=== PATIENT | male | born 1945 | race Caucasian/White ===

== ENCOUNTER → 2017-08-23 | Outpatient (CLI) | payer MEDICARE ==
[2017-08-23 17:14] LABS: BASO # 0.1 10^3/uL (0.0-0.2); BASO % 0.6 % (0.0-1.0); EOS # 0.1 10^3/uL (0.0-0.50); EOS % 0.8 % (0.0-3.0); HEMATOCRIT 43.1 % (42.0-52.0); HEMOGLOBIN 13.6 g/dl (13.5-17.5); IMMATURE GRANULOCYTE % 0.4 % (0-3.0); LYMPH # 1.8 10^3/uL (1.5-4.5); LYMPH % 18.6 % (24.0-44.0); MEAN CORPUSCULAR HEMOGLOBIN 27.6 pg (27.0-33.0); MEAN CORPUSCULAR HGB CONC 31.6 g/dl (32.0-36.5); MEAN CORPUSCULAR VOLUME 87.4 fl (80.0-96.0); MONO # 0.8 10^3/uL (0.0-0.8); MONO % 7.9 % (0.0-5.0); NEUTROPHILS # 6.9 10^3/uL (1.8-7.7); NEUTROPHILS % 71.7 % (36.0-66.0); PLATELET COUNT, AUTOMATED 290 10^3/uL (150-450); RED BLOOD COUNT 4.93 10^6/uL (4.30-6.10); RED CELL DISTRIBUTION WIDTH 12.5 % (11.5-14.5); WHITE BLOOD COUNT 9.6 10^3/uL (4.0-10.0)
[2017-08-26 00:10] LABS: HERPES ZOSTER, VARICELLA IgG 1967 index (Immune >165); HERPES ZOSTER, VARICELLA IgM <0.91 index (0.00-0.90); Lyme Disease IgG/IgM Antibodie <0.91 ISR (0.00-0.90); Lyme Disease IgM Ab Quantitati <0.80 index (0.00-0.79)
== END ==
LOC: M WUC 12:19
DX: R21 Rash and other nonspecific skin eruption (principal)
CPT/HCPCS: 86787

== ENCOUNTER 2018-07-13 09:52 | Emergency (ER) | payer MEDICARE ==
[~2018-07-13] VITALS: Ht 185.4 cm; Wt 126.8 kg
[~2018-07-13 09:52] MED LIST: /GLIP10TAB PO; ACTO30TA PO; ASPI81TA83 PO; GLUC500T PO; PRIL40CA OR; RAMI25CA PO; SIMV80TA PO; VOLT1GEL TOP
[2018-07-13] MEDS ORDERED: TRUL10IN INJ (10:01)
[2018-07-13] MEDS ORDERED: RAMI1CAP22 PO (10:01)
[2018-07-13] MEDS ORDERED: TAMS1CAP17 PO (10:01)
[2018-07-13] MEDS ORDERED: DICL50TAB PO (10:01)
[2018-07-13] MEDS ORDERED: FLUTISP NARES (10:01)
[2018-07-13] MEDS ORDERED: SLOWTAB2 PO (10:01)
[2018-07-13] MEDS ORDERED: PIOG1TAB37 PO (10:01)
[2018-07-13] MEDS ORDERED: ASPI81TA85 PO (10:01)
[2018-07-13] MEDS ORDERED: NS 1,000 ML IV ONE (10:30)
[2018-07-13 10:46] LABS: BASO # 0.1 10^3/uL (0.0-0.2); BASO % 0.5 % (0.0-1.0); EOS # 0.1 10^3/uL (0.0-0.50); EOS % 0.8 % (0.0-3.0); HEMATOCRIT 41.4 % (42.0-52.0); HEMOGLOBIN 13.4 g/dl (13.5-17.5); LYMPH # 1.7 10^3/uL (1.5-4.5); MEAN CORPUSCULAR HEMOGLOBIN 28.5 pg (27.0-33.0); MEAN CORPUSCULAR HGB CONC 32.4 g/dl (32.0-36.5); MEAN CORPUSCULAR VOLUME 87.9 fl (80.0-96.0); MONO # 0.8 10^3/uL (0.0-0.8); MONO % 7.4 % (0.0-5.0); NEUTROPHILS % 74.9 % (36.0-66.0); PLATELET COUNT, AUTOMATED 265 10^3/uL (150-450); RED BLOOD COUNT 4.71 10^6/uL (4.30-6.10); WHITE BLOOD COUNT 10.7 10^3/uL (4.0-10.0)
[2018-07-13 11:18] LABS: ALBUMIN 3.1 GM/DL (3.2-5.2); ALT/SGPT 14 U/L (12-78); BILIRUBIN,TOTAL 0.8 MG/DL (0.2-1.0); BLOOD UREA NITROGEN 14 MG/DL (7-18); CALCIUM LEVEL 8.1 MG/DL (8.8-10.2); CARBON DIOXIDE LEVEL 26 MEQ/L (21-32); CHLORIDE LEVEL 105 MEQ/L (98-107); CREATININE FOR GFR 0.92 MG/DL (0.70-1.30); GLOMERULAR FILTRATION RATE > 60.0 (>42); GLUCOSE, FASTING 114 MG/DL (70-100); SODIUM LEVEL 139 MEQ/L (136-145); TOTAL PROTEIN 6.9 GM/DL (6.4-8.2)
--- NOTE | 2018-07-13 12:46 | REP ---
REASON: Assess for possible inguinal hernia. COMPARISON: None. Multiple sonographic images of the inguinal regions bilaterally show hypoechoic/mixed echo areas in both inguinal canals consistent with adipose tissue. This does not diagnose an inguinal hernia. There is no abnormal peristalsing bowel in either inguinal canal. IMPRESSION: Each inguinal canal contains what is most probably increased adipose tissue which does not diagnose an inguinal hernia since there is no evidence of bowel in association with this suspected adipose tissue. I would recommend CT so as it can be compared to the prior pelvic CT of 01/22/2011. Electronically Signed by Arley Irizarry DO 07/13/2018 01:21 P
[2018-07-13] MEDS ORDERED: ZOFR4TAB16 PO (12:53)
[2018-07-13] MEDS ORDERED: TYLETAB14 PO (12:53)
[2018-07-13 12:55] VITALS: BP 136/74
[2018-07-13] MEDS ORDERED: ACETAMINOPH W/CODEINE #3 TAB UD PO ONE (13:00)
== END 2018-07-13 13:10 | disposition home or self-care (01) ==
LOC: M ED 09:52
DX: K40.20 Bilateral inguinal hernia, without obstruction or gangrene, not specified as recurrent (principal); Z88.0 Allergy status to penicillin; I10 Essential (primary) hypertension; E11.9 Type 2 diabetes mellitus without complications; E78.00 Pure hypercholesterolemia, unspecified; J30.2 Other seasonal allergic rhinitis; Z87.442 Personal history of urinary calculi; Z79.899 Other long term (current) drug therapy; Z79.84 Long term (current) use of oral hypoglycemic drugs; Z79.82 Long term (current) use of aspirin

== ENCOUNTER 2018-07-17 11:33 | Inpatient (IN) | payer MEDICARE ==
[~2018-07-17] VITALS: Ht 185.4 cm; Wt 125.0 kg
[~2018-07-17 11:33] MED LIST changes: +ASPI81TA85 PO; +DICL50TAB PO; +FLUTISP NARES; +PIOG1TAB37 PO; +RAMI1CAP22 PO; +SLOWTAB2 PO; +TAMS1CAP17 PO; +TRUL10IN INJ; +TYLETAB14 PO; +ZOFR4TAB16 PO
[2018-07-17] MEDS ORDERED: DICL1GEL3 TOP (12:51)
[2018-07-17 13:02] LABS: BASO # 0.1 10^3/uL (0.0-0.2); BASO % 0.5 % (0.0-1.0); EOS # 0.1 10^3/uL (0.0-0.50); EOS % 0.4 % (0.0-3.0); HEMATOCRIT 44.9 % (42.0-52.0); HEMOGLOBIN 14.4 g/dl (13.5-17.5); LYMPH # 1.5 10^3/uL (1.5-4.5); LYMPH % 13.3 % (24.0-44.0); MEAN CORPUSCULAR HEMOGLOBIN 28.1 pg (27.0-33.0); MEAN CORPUSCULAR HGB CONC 32.1 g/dl (32.0-36.5); MEAN CORPUSCULAR VOLUME 87.5 fl (80.0-96.0); MONO # 0.8 10^3/uL (0.0-0.8); MONO % 7.2 % (0.0-5.0); NEUTROPHILS % 78.3 % (36.0-66.0); PLATELET COUNT, AUTOMATED 290 10^3/uL (150-450); RED BLOOD COUNT 5.13 10^6/uL (4.30-6.10); WHITE BLOOD COUNT 11.4 10^3/uL (4.0-10.0)
[2018-07-17 13:14] LABS: INR 0.96; PARTIAL THROMBOPLASTIN TIME 30.2 SECONDS (25.4-37.6); PROTHROMBIN TIME 12.9 SECONDS (12.1-14.4)
[2018-07-17 13:28] LABS: ERYTHROCYTE SEDIMENTATION RATE 28 mm/hr (0-20)
[2018-07-17 13:36] LABS: ALBUMIN 3.1 GM/DL (3.2-5.2); ALT/SGPT 12 U/L (12-78); AMYLASE 29 U/L (25-115); BILIRUBIN,DIRECT 0.2 MG/DL (0.0-0.2); BILIRUBIN,TOTAL 0.8 MG/DL (0.2-1.0); BLOOD UREA NITROGEN 9 MG/DL (7-18); C REACTIVE PROTEIN QUANTITATIV 6.69 MG/DL (0.00-0.30); CALCIUM LEVEL 8.6 MG/DL (8.8-10.2); CARBON DIOXIDE LEVEL 27 MEQ/L (21-32); CHLORIDE LEVEL 103 MEQ/L (98-107); CREATININE FOR GFR 0.86 MG/DL (0.70-1.30); GLOMERULAR FILTRATION RATE > 60.0 (>42); GLUCOSE, FASTING 120 MG/DL (70-100); LIPASE 60 U/L (73-393); POTASSIUM SERUM 4.1 MEQ/L (3.5-5.1); SODIUM LEVEL 137 MEQ/L (136-145); TOTAL PROTEIN 7.1 GM/DL (6.4-8.2)
[2018-07-17] MEDS ORDERED: METF10004 PO (14:21)
[2018-07-17] MEDS ORDERED: GLIP10TA PO ×2 (14:21)
[2018-07-17] MEDS ORDERED: METF-839 PO (14:21)
[2018-07-17] MEDS ORDERED: ACET1TAB16 PO (14:21)
[2018-07-17] MEDS ORDERED: ADVI100T PO (14:23)
[2018-07-17] MEDS ORDERED: ACET-683 PO (14:23)
[2018-07-17] MEDS ORDERED: ISOVUE-370 76% 100ML VIAL (Q9967) As Ordered ONE (14:23)
[2018-07-17] MEDS ORDERED: ZOCO80TA PO (14:23)
[2018-07-17] MEDS ORDERED: OMEP40CA2 PO (14:23)
--- NOTE | 2018-07-17 14:50 | REP ---
Clinical: Cellulitis. Technique: Axial contrast enhanced images from the lung bases to the pubic symphysis using 100 ml Isovue 370 intravenous contrast material with coronal and sagittal re-formations. Comparison: 01/22/2011. Findings: Fibroatelectatic changes in the posterior right lower lobe. Visualized heart and pericardium normal. The liver, spleen, pancreas, gallbladder, bilateral adrenal glands and kidneys are normal. The enteric system is without obstruction or acute inflammatory process. Scattered sigmoid diverticula noted without acute diverticulitis. Pelvis demonstrates normal bladder and age appropriate prostate/seminal vesicles. No ascites. No free air. No adenopathy. Atherosclerotic changes to the aorta and vasculature without aneurysm or dissection. Osseous structures demonstrate osteopenia and degenerative changes without focal abnormality. Small fat containing inguinal hernias are suggested. There is a 4.4 cm round rim enhancing fluid collection in the right groin anterior to the right common femoral artery likely representing underlying abscess with small adjacent inflammatory stranding and reactive lymph nodes (images 147-166). Overlying skin thickening and subcutaneous infiltration is consistent with a site of cellulitis. Impression: 1. 4.4 cm rim enhancing fluid collection in the right groin superficial to the right common femoral artery with inflammatory stranding and mild reactive adenopathy suggesting small abscess. Mild surrounding cellulitis. 2. Right basilar atelectasis and/or chronic changes. 3. Scattered sigmoid diverticula. 4. Small fat containing inguinal hernias. Electronically Signed by Cuco Perez MD 07/17/2018 02:42 P
[2018-07-17] MEDS ORDERED: metroNIDAZOLE 500 MG in APPROPRIATE DILUENT 1 EA IV ONE (15:15)
[2018-07-17] MEDS ORDERED: CIPROFLOXACIN 400 MG in APPROPRIATE DILUENT 1 EA IV ONE (15:15)
[2018-07-17] MEDS ORDERED: MOM 30ML SUSPENSION UDC PO PRN (16:30)
[2018-07-17] MEDS ORDERED: GLUCAGON FOR INJ 1 MG VIAL (J1610) SC PRN (16:30)
[2018-07-17] MEDS ORDERED: DEXTROSE 50% 50 ML SYRINGE IV PRN (16:30)
[2018-07-17] MEDS ORDERED: GLUCOSE 4 GM CHEW TABLET PO PRN (16:30)
[2018-07-17] MEDS: HumaLOG INSULIN (NovoLOG) PER UNIT SC SCH ×2 (17:30→21:00)
--- NOTE | 2018-07-17 17:35 | HPEPDOC ---
[facility] Medical History & Physical Date of Admission July 17, 2018 Date of Service: July 17, 2018 Primary Care Physician: JUSTIN BROWN M.D. Attending Physician: SIMONA HEADLEY MD History and Physical CHIEF COMPLAINT: Right Inguinal Pain/Swelling HISTORY OF PRESENT ILLNESS: Patient is a 72 year old male with a past medical history significant for obesity and diabetes mellitus type 2 who presented to the [facility] ER with complaint of right inguinal pain and swelling since 06/26. Patient stated that on Sunday he had noted swelling on his right inguinal area. He noted that it was slightly tender. He sought care at the [facility] ER where it was felt he had a hernia. The patient was subsequently referred to Dr. Boateng of General Surgery. The patient presented to Dr. Boateng on 07/17/2018. At that time it was found that the patients complaint was likely not due to a hernia but due to a abscess/cellulitis. The patient was sent from the surgery office to the [facility] ER for further evaluation. The patient stated that he had recently returned from a trip to the [facility] where he went hiking and swimming. He denied hunting or coming into contact with animals. He does have dogs. He denied noticing any tick bites or feeling any insect bites although he is not sure. He denies any fevers or chills however stated that on Sunday night he had woken up in a sweat and noticed that his sheets were drenched. He states that since Sunday he has not had this happen again. He does admit to tenderness over his right inguinal region as well as a hard nodule. In the ER the patient received a CT abd/pelvis which demonstrated a 4.4 cm rim enhancing fluid collection in the right groin superficial to the right common femoral artery with inflammatory stranding and mild reactive adenopathy suggesting a small abscess with mild surrounding cellulitis. The patient was subsequently started on Flagyl and Cipro. Patient was then admitted for further evaluation and management PAST MEDICAL HISTORY: 1. GI bleed 2/2 Gastric ulcer in 2010 2/2 to NSAID use 2. Diabetes Mellitus Type 2 3. Osteoarthritis of bilateral knees PAST SURGICAL HISTORY: 1. Root canal 06/2018 SOCIAL HISTORY: Patient lives at home with his and dogs. He denies smoking. He denies illicit drug use. FAMILY HISTORY: Noncontributory ALLERGIES: Please see below. REVIEW OF SYSTEMS: CONSTITUTIONAL: Admits to one epsiode of night sweats. Denies fevers. Denies fatigue. Denies unintentional weightloss or weightgain HEENT: Denies changes in vision. Denies dysphagia or sore throat. Denies cough or sputum production. Denies congestion CARDIOVASCULAR: Denies chest pain, palpitations, or feelings of the heart racing RESPIRATORY: Denies shortness of breath. Denies cough. Denies wheezing GASTROINTESTINAL: Denies abdominal pain. Admits to right inguinal tenderness and mass with redness. Denies diarrhea, constipation, nausea, vomiting. GENITOURINARY: Denies dysuria or increased frequency SKIN: Admits to redness of right inguinal area. Denies any puncture wounds, rashes, or lesions. Denies any insect bites MUSCULOSKELETAL: Admits to chronic pain in his knees NEUROLOGICAL: Denies gait disturbance. Denies changes in vision in speech. Denies muscle weakness PSYCHIATRIC: Denies depression or anxiety ENDOCRINE: Denies heat intolerance or cold intolerance HEMATOLOGIC/LYMPHATIC: Denies easy bruising or bleeding HOME MEDICATIONS: Please see below. PHYSICAL EXAMINATION: VITAL SIGNS: Temperature 98.8, pulse 91, respiratory rate 16, blood pressure 138/78, pulse oximetry 98% on room air. GENERAL APPEARANCE: Patient is awake, alert, and oriented. He is lying in stretcher in no acute distress. He is well groomed HEENT: Atruamtic, normocephalic. Eyes are nonicteric. No conjunctival injection present. No palpable cervical chain lymphadenopathy. No axillary or supraclavicular lymphadenopathy present CARDIOVASCULAR: Normal S1, S2. Regular rate and rhythm. No clicks, rubs, or murmurs. No JVD LUNGS: Clear vesicular lung sounds bilaterally with good respiratory effort. No wheezes, rhonchi or rales. ABDOMEN: Obese, soft, nondistended. Approximately 5mm hard mass in right inguinal area with overlying erythema. Area of erythema extending distally to thigh. No obvious trauma or puncture wounds. Mass is tender to palpation. EXTREMITIES: Full and equal pulses bilaterally. 1mm pitting edema in bilateral lower extremities NEUROLOGICAL: No focal neurological deficits noted PSYCHIATRIC: Mood and affect appear appropriate LABORATORY DATA: See below. IMAGING: Clinical: Cellulitis. Technique: Axial contrast enhanced images from the lung bases to the pubic symphysis using 100 ml Isovue 370 intravenous contrast material with coronal and sagittal re-formations. Comparison: 01/22/2011. Findings: Fibroatelectatic changes in the posterior right lower lobe. Visualized heart and pericardium normal. The liver, spleen, pancreas, gallbladder, bilateral adrenal glands and kidneys are normal. The enteric system is without obstruction or acute inflammatory process. Scattered sigmoid diverticula noted without acute diverticulitis. Pelvis demonstrates normal bladder and age appropriate prostate/seminal vesicles. No ascites. No free air. No adenopathy. Atherosclerotic changes to the aorta and vasculature without aneurysm or dissection. Osseous structures demonstrate osteopenia and degenerative changes without focal abnormality. Small fat containing inguinal hernias are suggested. There is a 4.4 cm round rim enhancing fluid collection in the right groin anterior to the right common femoral artery likely representing underlying abscess with small adjacent inflammatory stranding and reactive lymph nodes (images 147-166). Overlying skin thickening and subcutaneous infiltration is consistent with a site of cellulitis. Impression: 1. 4.4 cm rim enhancing fluid collection in the right groin superficial to the right common femoral artery with inflammatory stranding and mild reactive adenopathy suggesting small abscess. Mild surrounding cellulitis. 2. Right basilar atelectasis and/or chronic changes. 3. Scattered sigmoid diverticula. 4. Small fat containing inguinal hernias. Electronically Signed by Cuco Perez MD 07/17/2018 02:42 P MICROBIOLOGY: Please see below. ASSESSMENT: Patient is a 72 year old male with a past medical history significant for bilateral knee osteoarthritis, h/o GI bleed secondary to gastric ulcer from chronic NSAID use, and diabetes mellitus type 2 who presented to the [facility] ER with complaint of right inguinal swelling and tenderness. Patient had presented to the ER earlier in the week and was told he likely had a hernia. He was subsequently referred to General Surgery where he was found to have a likely abscess. The patient was sent to the ER where he was found to have a likely abscess in his right inguinal area. . PLAN: 1. Right Groin/inguinal abscess/cellulitis -Patient has an abscess identified by CT. He also has a cellulitis with spreading areas of erythema. -Patient will see Dr. Boateng for I&D or needle drainage -Will continue patient on Flagyl and Cipro -Patient had recently traveled and was hiking. Will obtain Lyme, Bartonella, and Brucella testing. 2. Diabetes Mellitus Type 2 -Sliding scale insulin protocol -Ramipril -Simvastatin 3. BPH -Fomax 0.4mg QHS 4. H/O Gastric Ulcer/ GERD -Prilosec 40mg daily Vital Signs Vital Signs Date Time Temp Pulse Resp B/P (MAP) Pulse Ox O2 Delivery O2 Flow Rate FiO2 07/17/18 15:30 98.8 91 16 138/78 (98) 98 Room Air Laboratory Data Labs 24H Laboratory Tests 2 07/17/18 12:42: Immature Granulocyte % (Auto) 0.3, White Blood Count 11.4H, Red Blood Count 5.13, Hemoglobin 14.4, Hematocrit 44.9, Mean Corpuscular Volume 87.5, Mean Corpuscular Hemoglobin 28.1, Mean Corpuscular Hemoglobin Concent 32.1, Red Cell Distribution Width 13.2, Platelet Count 290, Neutrophils (%) (Auto) 78.3H, Ly mphocytes (%) (Auto) 13.3L, Monocytes (%) (Auto) 7.2H, Eosinophils (%) (Auto) 0.4, Basophils (%) (Auto) 0.5, Neutrophils # (Auto) 9.0H, Lymphocytes # (Auto) 1.5, Monocytes # (Auto) 0.8, Eosinophils # (Auto) 0.1, Basophils # (Auto) 0.1, Nucleated Red Blood Cells % (auto) 0.0, Erythrocyte Sedimentation Rate 28H, Prothrombin Time 12.9, Prothromb Time International Ratio 0.96, Activated Partial Thromboplast Time 30.2, Anion Gap 7L, Glomerular Filtration Rate > 60.0, Lactic Acid Level 1.4, Calcium Level 8.6L, Aspartate Amino Transf (AST/SGOT) 10, Alanine Aminotransferase (ALT/SGPT) 12, Alkaline Phosphatase 88, Total Bilirubin 0.8, Direct Bilirubin 0.2, C-Reactive Protein, Quantitative 6.69H, Total Protein 7.1, Albumin 3.1L, Albumin/Globulin Ratio 0.78L, Amylase Level 29, Lipase 60L CBC/BMP Laboratory Tests 07/17/18 12:42 Red Blood Count 5.13, Mean Corpuscular Volume 87.5, Mean Corpuscular Hemoglobin 28.1, Mean Corpuscular Hemoglobin Concent 32.1, Red Cell Distribution Width 13.2, Neutrophils (%) (Auto) 78.3 H, Lymphocytes (%) (Auto) 13.3 L, Monocytes (%) (Auto) 7.2 H, Eosinophils (%) (Auto) 0.4, Basophils (%) (Auto) 0.5, Neutrophils # (Auto) 9.0 H, Lymphocytes # (Auto) 1.5, Monocytes # (Auto) 0.8, Eosinophils # (Auto) 0.1, Basophils # (Auto) 0.1 Microbiology Microbiology 07/17/18 Blood Culture, Received Pending 07/17/18 Blood Culture, Received Pending Home Medications Scheduled Aspirin (Aspir 81) 81 Mg Tablet.dr, 81 MG PO DAILY Dulaglutide (Trulicity) 0.75 Mg/0.5 Ml Pen.injctr, 0.75 MG INJ QWEEK ON MONDAYS Glipizide (Glipizide) 10 Mg Tablet, 10 MG PO DAILY Glipizide (Glipizide) 10 Mg Tablet, 5 MG PO QPM TAKES AT DINNER Magnesium Chloride (Slow-Mag) 71.5 Mg Tablet.dr, 1 TAB PO BID Metformin HCl (Metformin HCl) 1,000 Mg Tablet, 1,000 MG PO BID Metformin HCl (Metformin HCl) 500 Mg Tablet, 500 MG PO DAILY AT 1200 Omeprazole (Omeprazole) 40 Mg Capsule.dr, 40 MG PO DAILY Pioglitazone HCl (Pioglitazone HCl) 30 Mg Tablet, 30 MG PO DAILY Ramipril (Ramipril) 2.5 Mg Capsule, 2.5 MG PO DAILY Simvastatin (Zocor) 80 Mg Tablet, 80 MG PO DAILY Tamsulosin Hcl (Tamsulosin HCl) 0.4 Mg Capsule, 0.4 MG PO QHS Scheduled PRN Acetaminophen (Acetaminophen) 500 Mg Tablet, 500 MG PO Q6H PRN for PAIN Acetaminophen with Codeine (Acetaminophen-Cod #3 Tablet) 1 Each Tablet, 1 TAB PO Q6H PRN for PAIN Diclofenac Sodium (Diclofenac Sodium) 1% 100GM Gel..gram., 1 APLCT TOP DAILY PRN for PAIN APPLIES TO KNEES AND OCCASIONALLY ELBOWS Fluticasone Propionate (Fluticasone Propionate) 16 Gm Cotton.susp, 2 SPRAYS NARES DAILY PRN for CONGESTION Ibuprofen (Advil) 100 Mg Tablet, 100 MG PO Q6H PRN for PAIN Allergies Coded Allergies: Penicillins (Verified Allergy, Unknown, SEVERE RASH, 07/17/18) A-FIB/CHADSVASC A-FIB History Current/History of A-Fib/PAF?: No GME ATTESTATION GME ATTESTATION My faculty preceptor for this patient encounter was physically present during the encounter and was fully available. All aspects of the patient interview, examination, medical decision making process, and medical care plan development were reviewed and approved by the faculty preceptor. The faculty preceptor is aware and concurs with the plan as stated in the body of this note and will attest to such by his/her cosignature. ATTENDING NOTE Patient was seen and examined at bedside in ED Case discussed with resident physician . We will also request a surgical consultation for possible I&D Cultures will be sent to the I&D is performed Continue Jasmine Saba. In the meantime Infectious disease workup has been ordered LA SINGH DO July 17, 2018 17:35 SIMONA HEADLEY MD July 18, 2018 07:44
[2018-07-17] MEDS ORDERED: ACETAMINOPH W/CODEINE #3 TAB UD PO PRN (17:45)
[2018-07-17] MEDS: HEPARIN SOD (PORCINE) 5000 UNITS/ML VIAL SC SCH (21:01)
[2018-07-17] MEDS: TAMSULOSIN 0.4 MG CAP PO SCH (21:01)
[2018-07-17] MEDS: ACETAMINOPHEN TAB 650MG DOSE (2X325MG) PO PRN (21:01)
[2018-07-17 22:00] VITALS: BP 166/92
[2018-07-18] MEDS: metroNIDAZOLE 500 MG in APPROPRIATE DILUENT 1 EA IV SCH ×3 (01:19→17:27)
[2018-07-18] MEDS: CIPROFLOXACIN 400 MG in APPROPRIATE DILUENT 1 EA IV SCH ×2 (04:29→15:41)
[2018-07-18] MEDS: HEPARIN SOD (PORCINE) 5000 UNITS/ML VIAL SC SCH ×3 (04:37→22:00)
[2018-07-18 06:00] VITALS: BP 122/85
[2018-07-18 06:15] LABS: HEMATOCRIT 40.1 % (42.0-52.0); MEAN CORPUSCULAR HEMOGLOBIN 28.6 pg (27.0-33.0); MEAN CORPUSCULAR HGB CONC 32.4 g/dl (32.0-36.5); MEAN CORPUSCULAR VOLUME 88.1 fl (80.0-96.0); PLATELET COUNT, AUTOMATED 286 10^3/uL (150-450); RED BLOOD COUNT 4.55 10^6/uL (4.30-6.10); WHITE BLOOD COUNT 8.1 10^3/uL (4.0-10.0)
[2018-07-18 06:43] LABS: ALBUMIN 2.7 GM/DL (3.2-5.2); ALT/SGPT 13 U/L (12-78); BILIRUBIN,TOTAL 0.6 MG/DL (0.2-1.0); BLOOD UREA NITROGEN 10 MG/DL (7-18); C REACTIVE PROTEIN QUANTITATIV 3.92 MG/DL (0.00-0.30); CALCIUM LEVEL 8.6 MG/DL (8.8-10.2); CARBON DIOXIDE LEVEL 30 MEQ/L (21-32); CHLORIDE LEVEL 103 MEQ/L (98-107); CREATININE FOR GFR 0.92 MG/DL (0.70-1.30); GLOMERULAR FILTRATION RATE > 60.0 (>42); GLUCOSE, FASTING 201 MG/DL (70-100); POTASSIUM SERUM 4.1 MEQ/L (3.5-5.1); SODIUM LEVEL 138 MEQ/L (136-145); TOTAL PROTEIN 6.5 GM/DL (6.4-8.2)
[2018-07-18] MEDS: OMEPRAZOLE 20 MG CAP PO SCH (08:06)
[2018-07-18] MEDS: HumaLOG INSULIN (NovoLOG) PER UNIT SC SCH ×4 (08:06→21:00)
[2018-07-18] MEDS: SIMVASTATIN 40 MG TAB PO SCH (08:06)
[2018-07-18] MEDS: RAMIPRIL 1.25 MG CAP PO SCH (08:07)
--- NOTE | 2018-07-18 10:46 | CR ---
DATE OF CONSULTATION: 07/17/2018 The patient presented to the office yesterday morning with a cellulitis in the right groin and palpable mass. However, this was inferior to the inguinal ligament, and it was lateral to where a femoral hernia would be, suggesting that it is either an abscess developing or an enlarged lymph node. Essentially, he presented to my office, and I sent him to the emergency room, given that he had a rapid acceleration of cellulitis that developed over the last 24 hours. Essentially, he has had some dental issues and was on antibiotics for about a week. Just stopped it about 48 hours ago, and I wonder if this was being partially treated with antibiotics. He really does not have a good reason for this, however, and the right groin does not have any trauma or infections in the right groin area, right leg area. Has not had any other complaints around this area. In any case, he presents with a 4 cm abscess in the right groin and was admitted by the hospitalists with me as a computer consultant for additional recommendations. PAST MEDICAL HISTORY: Is significant for a history of morbid obesity, history of diabetes mellitus, history of pain and discomfort over the last week in the right groin but more so 4 days ago, and was seen in the emergency room. He had a slightly elevated white count at that time but had an ultrasound that showed fat in the inguinal canals and was sent to my office for possible inguinal hernias, which he does not have on physical examination. In any case, also osteoarthritis of the bilateral knees, root canal. MEDICATIONS: Include aspirin, Trulicity, glipizide, Slow-Magnesium, metformin, omeprazole, pioglitazone, ramipril, Zocor, and Flomax. PHYSICAL EXAMINATION: Reveals an obese white male who looks stated age. HEENT is unremarkable. Neck: Supple without adenopathy. Lungs are clear to auscultation without crackles, wheezes, or rhonchi. Heart is regular with a few irregular beats. Abdomen is soft, nontender, nondistended. In the right groin, he has cellulitis that it is extending from the groin crease down into his fat in the right inguinal area down to the scrotum area but not all the way to the scrotum. I do not feel any crepitus in this area. I do not appreciate any subcutaneous emphysema. None was appreciated on the CAT scan. He also has cellulitis on his upper thigh. IMPRESSION AND PLAN: The patient has an abscess in the right groin of undetermined etiology, infection with cellulitis; and at this point, my recommendation is to proceed with needle aspirate of this here in the emergency room, possibly drainage with incision and drainage depending on the amount of fluid I am able to express from this site. Risks, as well as benefits, have been discussed with the patient at length, and he would like to proceed with this here today. The patient was prepped and draped in usual sterile fashion, and local lidocaine with epinephrine was infiltrated over the abscess site that was easily palpated. This 4 cm size abscess was easily palpated. It was adherent to underlying structure, but it was not pulsatile, did not appear to be a pseudoaneurysm, did not appear to be other significant abnormality. Thus, a finder needle was placed with a 22 gauge into this. No fluid was returned, which is surprising at this time. I expected some purulent material; and thus, an 18 gauge catheter was placed into the middle of this, and still no fluid was obtained. Given this finding, my recommendation at this time is that he proceed with an ultrasound tomorrow; and if there is some fluid, that he undergo ultrasound-guided drainage, aspiration with possible culture of this. However, at this point, continue him with antibiotics overnight is reasonable. Thus, my assessment at this time is that this is most likely an enlarged lymph node.
--- NOTE | 2018-07-18 11:13 | IPN ---
DATE: 07/18/2018 Patient was seen yesterday, had significant cellulitis of the right groin with an abscess in the right groin. However, when I attempted to aspirate this in the emergency room I was not able to get any fluid back. Overnight, he states that the swelling in the right groin has substantially decreased. He has not had any drainage from the site and the redness has improved., and on his physical exam this is indeed true. His white count has normalized. He has been afebrile and overall the cellulitis has almost completely resolved. It has not completely resolved this morning. He still has a mass in this area but it seems as though it is less swollen than it was yesterday and seems to be of smaller size. IMPRESSION AND PLAN: The patient has an infected right groin area and the question whether this was an abscess or whether this was an infected lymph node is probably the question at this point. If this truly was fluid it would be nice to get some fluid, send it to pathology for microbiology and gram stain. Thus, I will keep his ultrasound-guided aspiration/drainage procedure on the schedule for today, but I do feel that after this he could be discharged home with oral antibiotics and followup in my office in 1-2 weeks.
[2018-07-18] MEDS: DICLOFENAC SODIUM 1% TOP SCH ×3 (11:59→21:00)
--- NOTE | 2018-07-18 13:39 | IPNPDOC ---
Subjective Date Seen The patient was seen on 07/18/18. Subjective Chief Complaint/HPI Redness is gone away and swelling has resolved slightly. Dr. Boateng tried to aspirate but was unable to perform it General: Denies: ROS Unobtainable, Chills, Night Sweats, Fatigue, Malaise, Normal Appetite, Other Symptoms Constitutional: Denies: Chills, Fever, Malaise, Night Sweats, Weakness, Fatig ue, Weight Loss, Lethargy, Other Eyes: Denies: Pain, Vision change, Conjunctivae inflammation, Eyelid inflammation, Redness, Other ENT: Denies: Head Aches, Ear Pain, Dysphagia, Sinus Congestion, Post Nasal Drip, Sore Throat, Epistaxis, Other Symptoms Skin: Denies: Rash, Lesions, Jaundice, Bruising, Itching, Dry, Breakdown, Nail Changes, Other Pulmonary: Denies: Dyspnea, Cough, Pleuritic Chest Pain, Other Symptoms Cardiovascular: Denies: Chest Pain, Palpitations, Orthopnea, Paroxysmal Noc. Dyspnea, Edema, Lt Headedness, Other Symptoms Gastrointestinal: Denies: Nausea, Vomiting, Abdominal Pain, Diarrhea, Constipation, Melena, Hematochezia, Other Symptoms Genitourinary: Denies: Dysuria, Frequency, Incontinence, Hematuria, Retention, Other Symptoms Hematologic: Denies: Bruising, Bleeding Excessively, Petecchia, Purpura, Enlarged Lymph Nodes, Other Hematologic Endocrine: Denies: Polydipsia, Polyphagia, Polyuria, Heat Intolerance, Cold Intolerance, Other Endocrine Sx Musculoskeletal: Denies: Neck Pain, Back Pain, Shoulder Pain, Arm Pain, Hand Pain, Leg Pain, Foot Pain, Joint Pain, Muscle Pain, Spasms, Other Symptoms Neurological: Denies: Weakness, Numbness, Incoordination, Change in speech, Confusion, Seizures, Other Symptoms Objective Physical Examination General Exam: Positive: Alert, Cooperative Eye Exam: Positive: PERRLA Neck Exam: Positive: Supple Chest Exam: Positive: Clear to auscultation, Normal air movement Heart Exam: Positive: Rate Normal, Normal S1, Normal S2 Abdomen Exam: Positive: Normal bowel sounds, Other (positive swelling. The right groin which decreased surrounding redness) Skin Exam: Positive: Nl turgor and temperature Neuro Exam: Positive: Normal Gait A-FIB/CHADSVASC A-FIB History Current/History of A-Fib/PAF?: No Assessment /Plan Problems (1) Cellulitis Status: Acute Problem Text: Resolving with IV antibiotics Continue Cipro and Flagyl Will continue the same as WC count is also decreasing Repeat CBC in a.m. Cultures and other antibiotics pending (2) Cutaneous abscess of groin Status: Acute Problem Text: Scheduled for ultrasound-guided decided aspiration . We will send the aspirate for cultures. Once available . We will discharge patient once the procedure is performed, and patient is asymptomatic Plan/VTE VTE Prophylaxis Ordered?: Yes VS, I&O, 24H, Fishbone Vital Signs/I&O Vital Signs Date Time Temp Pulse Resp B/P (MAP) Pulse Ox O2 Delivery O2 Flow Rate FiO2 07/18/18 08:07 122/85 07/18/18 06:00 97.3 80 18 96 07/17/18 15:30 Room Air I&O- Last 24 Hours up to 6 AM 07/18/18 06:00 Intake Total 1340 ml Output Total 0 ml Balance 1340 ml Laboratory Data 24H LABS Laboratory Tests 2 07/17/18 18:02: Bedside Glucose (Misc Panel) 112H 07/17/18 20:52: Bedside Glucose (Misc Panel) 185H 07/18/18 05:56: Nucleated Red Blood Cells % (auto) 0.0, Anion Gap 5L, Glomerular Filtration Rate > 60.0, Blood Urea Nitrogen 10, Creatinine 0.92, Sodium Level 138, Potassium Level 4.1, Chloride Level 103, Carbon Dioxide Level 30, Calcium Level 8.6L, Asp artate Amino Transf (AST/SGOT) 6L, Alanine Aminotransferase (ALT/SGPT) 13, Alkaline Phosphatase 74, Total Bilirubin 0.6, Total Protein 6.5, Albumin 2.7L, C-Reactive Protein, Quantitative 3.92H, Albumin/Globulin Ratio 0.71L 07/18/18 06:41: Bedside Glucose (Misc Panel) 175H 07/18/18 11:41: Bedside Glucose (Misc Panel) 169H CBC/BMP Laboratory Tests 07/18/18 05:56 Red Blood Count 4.55, Mean Corpuscular Volume 88.1, Mean Corpuscular Hemoglobin 28.6, Mean Corpuscular Hemoglobin Concent 32.4, Red Cell Distribution Width 13.1, Calcium Level 8.6 L, Aspartate Amino Transf (AST/SGOT) 6 L, Alanine Aminotransferase (ALT/SGPT) 13, Alkaline Phosphatase 74, Total Bilirubin 0.6, Total Protein 6.5, Albumin 2.7 L Microbiology Microbiology 07/17/18 Blood Culture - Preliminary, Resulted No growth after 24 hours . All specim... 07/17/18 Blood Culture - Preliminary, Resulted No growth after 24 hours . All specim... SIMONA HEADLEY MD July 18, 2018 13:39
[2018-07-18] MEDS ORDERED: LIDOCAINE 1% MDV 20ML VIAL As Ordered ONE (14:14)
--- NOTE | 2018-07-18 15:36 | REP ---
Clinical: Right groin abscess. Technique: Real time dozier scale and color Doppler evaluation using curved array transducer. Findings: Directed ultrasound examination of the right groin demonstrates a complex fluid collection measuring 5.3 x 3.5 x 3.5 cm with subtle peripheral vascularity. Impression: Findings compatible with groin abscess. Differential diagnosis may include a solitary suppurative lymph node. Electronically Signed by Cuco Perez MD 07/18/2018 03:28 P
[2018-07-18] MEDS: TAMSULOSIN 0.4 MG CAP PO SCH (19:30)
[2018-07-18] MEDS: ACETAMINOPHEN TAB 650MG DOSE (2X325MG) PO PRN (19:31)
[2018-07-18 22:00] VITALS: BP 123/82
[2018-07-19] MEDS: metroNIDAZOLE 500 MG in APPROPRIATE DILUENT 1 EA IV SCH ×2 (01:05→08:06)
[2018-07-19] MEDS: CIPROFLOXACIN 400 MG in APPROPRIATE DILUENT 1 EA IV SCH (05:20)
[2018-07-19] MEDS: HEPARIN SOD (PORCINE) 5000 UNITS/ML VIAL SC SCH (05:20)
[2018-07-19] MEDS: ACETAMINOPHEN TAB 650MG DOSE (2X325MG) PO PRN (05:20)
[2018-07-19 06:00] VITALS: BP 126/98
[2018-07-19 07:22] LABS: BLOOD UREA NITROGEN 12 MG/DL (7-18); CALCIUM LEVEL 8.2 MG/DL (8.8-10.2); CARBON DIOXIDE LEVEL 28 MEQ/L (21-32); CHLORIDE LEVEL 105 MEQ/L (98-107); CREATININE FOR GFR 0.93 MG/DL (0.70-1.30); GLOMERULAR FILTRATION RATE > 60.0 (>42); GLUCOSE, FASTING 217 MG/DL (70-100); POTASSIUM SERUM 3.8 MEQ/L (3.5-5.1); SODIUM LEVEL 138 MEQ/L (136-145)
[2018-07-19 08:07] VITALS: BP 126/98
[2018-07-19] MEDS: OMEPRAZOLE 20 MG CAP PO SCH (08:07)
[2018-07-19] MEDS: DICLOFENAC SODIUM 1% TOP SCH (08:07)
[2018-07-19] MEDS: SIMVASTATIN 40 MG TAB PO SCH (08:07)
[2018-07-19] MEDS: RAMIPRIL 1.25 MG CAP PO SCH (08:07)
[2018-07-19] MEDS: HumaLOG INSULIN (NovoLOG) PER UNIT SC SCH (08:07)
[2018-07-19] MEDS ORDERED: FLAG500T PO (10:08)
[2018-07-19] MEDS ORDERED: CIPR-249 PO (10:09)
--- NOTE | 2018-07-19 10:26 | DS.PDOC ---
Discharge Summary General Date of Admission July 17, 2018 at 16:22 Date of Discharge 07/19/18 Attending Physician: SIMONA HEADLEY MD Discharge Summary PROCEDURES PERFORMED DURING STAY: None. ADMITTING DIAGNOSES: 1. Right groin cellulitis. DISCHARGE DIAGNOSES: 1. Right groin cellulitis and abscess. COMPLICATIONS/CHIEF COMPLAINT: Cutaneous Abscess Of Groin. HISTORY OF PRESENT ILLNESS: Patient is a 72 year old male with a past medical history significant for obesity and diabetes mellitus type [address] [facility] ER with complaint of right inguinal pain and swelling since Sunday07/13/2018. Patient stated that on Sunday he had noted swelling on his right inguinal area. He noted that it was slightly tender. He sought care at the [facility] ER where it was felt he had a hernia. The patient was subsequently referred to Dr. Boateng of General Surgery. The patient presented to Dr. Boateng on 07/17/2018. At that time it was found that the patients complaint was likely not due to a hernia but due to a abscess/cellulitis. The patient was sent from the surgery office to the [facility] ER for further evaluation. The patient stated that he had recently returned from a trip to the [facility] where he went hiking and swimming. He denied hunting or coming into contact with animals. He does have dogs. He denied noticing any tick bites or feeling any insect bites although he is not sure. He denies any fevers or chills however stated that on Sunday night he had woken up in a sweat and noticed that his sheets were drenched. He states that since Sunday he has not had this happen again. He does admit to tenderness over his right inguinal region as well as a hard nodul e. In the ER the patient received a CT abd/pelvis which demonstrated a 4.4 cm rim enhancing fluid collection in the right groin superficial to the right common femoral artery with inflammatory stranding and mild reactive adenopathy suggesting a small abscess with mild surrounding cellulitis. The patient was subsequently started on Flagyl and Cipro. Patient was then admitted for further evaluation and management]. HOSPITAL COURSE: (1) Cellulitis Patient received IV Cipro and Flagyl and responded to above treatment very well, antibiotics will be switched to by mouth for 10 days on discharge home. Further workup is pending and he'll follow with Dr. Duncan and Dr. Boateng as an outpatient. Further reports Patient has responded to Cipro and Flagyl and will continue the same. (2) Cutaneous abscess of groin ultrasound-guided decided aspiration done Cultures pending Discharge patient home. Further workup as an outpatient DISCHARGE MEDICATIONS: Please see below. ALLERGIES: Please see below. PHYSICAL EXAMINATION ON DISCHARGE: VITAL SIGNS: Please see below. GENERAL: Within normal limits HEENT: PERRLA NECK: Supple, no JVD, no lymphadenopathy CARDIOVASCULAR EXAMINATION: S1, S2, regular RESPIRATORY EXAMINATION: Clear to A&P ABDOMINAL EXAMINATION: Benign palpable, nontender mass in the right inguinal area, operations resolved EXTREMITIES: No clubbing, cyanosis, edema SKIN: As above NEUROLOGICAL EXAMINATION: No motor or sensory deficit PSYCHIATRIC EXAMINATION: Normal LABORATORY DATA: Please see below. IMAGING: As above PROGNOSIS: Good ACTIVITY: As tolerated. DIET: Regular DISCHARGE PLAN: Follow-up with and Dr. Duncan in 1 week DISPOSITION: . Home DISCHARGE INSTRUCTIONS: 1. As above. ITEMS TO FOLLOWUP ON ON OUTPATIENT: 1. As above. DISCHARGE CONDITION: Stable. TIME SPENT ON DISCHARGE: Greater than 42 minutes. Vital Signs/I&Os Vital Signs Date Time Temp Pulse Resp B/P (MAP) Pulse Ox O2 Delivery O2 Flow Rate FiO2 07/19/18 08:07 126/98 07/19/18 06:00 96.0 81 20 90 07/17/18 15:30 Room Air l I&O- Last 24 Hours up to 6 AM 07/19/18 06:00 Intake Total 1800 ml Output Total 0 ml Balance 1800 ml Laboratory Data Labs 24H Laboratory Tests 2 07/18/18 11:41: Bedside Glucose (Misc Panel) 169H 07/18/18 16:22: Bedside Glucose (Misc Panel) 193H 07/18/18 20:50: Bedside Glucose (Misc Panel) 269H 07/19/18 06:45: Anion Gap 5L, Glomerular Filtration Rate > 60.0, Blood Urea Nitrogen 12, Creatinine 0.93, Sodium Level 138, Potassium Level 3.8, Chloride Level 105, Carbon Dioxide Level 28, Calcium Level 8.2L, C-Reactive Protein, Quantitative 2.40H CBC/BMP Laboratory Tests 07/19/18 06:45 Calcium Level 8.2 L FSBS Laboratory Tests Test 07/18/18 11:41 07/18/18 16:22 07/18/18 20:50 Range/Units Bedside Glucose (Misc Panel) 169 193 269 83-110 MG/DL Microbiology Microbiology 07/17/18 Blood Culture - Preliminary, Resulted No growth after 24 hours . All specim... 07/17/18 Blood Culture - Preliminary, Resulted No growth after 24 hours . All specim... Discharge Medications Scheduled Aspirin (Aspir 81) 81 Mg Tablet.dr, 81 MG PO DAILY, (Reported) Ciprofloxacin HCl (Cipro) 500 Mg Tablet, 500 MG PO BID Dulaglutide (Trulicity) 0.75 Mg/0.5 Ml Pen.injctr, 0.75 MG INJ QWEEK, (Reported) ON MONDAYS Glipizide (Glipizide) 10 Mg Tablet, 10 MG PO DAILY, (Reported) Glipizide (Glipizide) 10 Mg Tablet, 5 MG PO QPM, (Reported) TAKES AT DINNER Magnesium Chloride (Slow-Mag) 71.5 Mg Tablet.dr, 1 TAB PO BID, (Reported) Metformin HCl (Metformin HCl) 1,000 Mg Tablet, 1,000 MG PO BID, (Reported) Metformin HCl (Metformin HCl) 500 Mg Tablet, 500 MG PO DAILY, (Reported) AT 1200 Metronidazole (Flagyl) 500 Mg Tablet, 500 MG PO Q8H FOR 10 DAYS Omeprazole (Omeprazole) 40 Mg Capsule.dr, 40 MG PO DAILY, (Reported) Pioglitazone HCl (Pioglitazone HCl) 30 Mg Tablet, 30 MG PO DAILY, (Reported) Ramipril (Ramipril) 2.5 Mg Capsule, 2.5 MG PO DAILY, (Reported) Simvastatin (Zocor) 80 Mg Tablet, 80 MG PO DAILY, (Reported) Tamsulosin Hcl (Tamsulosin HCl) 0.4 Mg Capsule, 0.4 MG PO QHS, (Reported) Scheduled PRN Acetaminophen (Acetaminophen) 500 Mg Tablet, 500 MG PO Q6H PRN for PAIN, (Reported) Acetaminophen with Codeine (Acetaminophen-Cod #3 Tablet) 1 Each Tablet, 1 TAB PO Q6H PRN for PAIN, (Reported) Diclofenac Sodium (Diclofenac Sodium) 1% 100GM Gel..gram., 1 APLCT TOP DAILY PRN for PAIN, (Reported) APPLIES TO KNEES AND OCCASIONALLY ELBOWS Fluticasone Propionate (Fluticasone Propionate) 16 Gm [place].susp, 2 SPRAYS NARES DAILY PRN for CONGESTION, (Reported) Ibuprofen (Advil) 100 Mg Tablet, 100 MG PO Q6H PRN for PAIN, (Reported) Allergies Coded Allergies: Penicillins (Verified Allergy, Unknown, SEVERE RASH, 07/17/18) SIMONA HEADLEY MD July 19, 2018 10:26
[2018-07-23 14:13] LABS: BARTONELLA DNA PCR Negative (Negative); Lyme Disease IgG/IgM Antibodie <0.91 ISR (0.00-0.90); Lyme Disease IgM Ab Quantitati <0.80 index (0.00-0.79)
== END 2018-07-19 11:20 | disposition home or self-care (01) | DRG 603 ==
LOC: M ED 11:33 → M ED INP 16:22 → M MS5PR 18:35
PROVIDERS: ADMIT Internal Medicine; ATTEND Internal Medicine
DX: L02.214 Cutaneous abscess of groin (principal); E66.01 Morbid (severe) obesity due to excess calories; E11.9 Type 2 diabetes mellitus without complications; Z79.899 Other long term (current) drug therapy; Z79.82 Long term (current) use of aspirin; Z88.0 Allergy status to penicillin; M17.2 Bilateral post-traumatic osteoarthritis of knee; N40.0 Benign prostatic hyperplasia without lower urinary tract symptoms

== ENCOUNTER → 2018-11-18 | Outpatient (REF) | payer MEDICARE ==
[~2018-11-18] MED LIST changes: +ACET-683 PO; +ACET1TAB16 PO; +ADVI100T PO; +CIPR-249 PO; +DICL1GEL3 TOP; +FLAG500T PO; +GLIP10TA PO; +METF-839 PO; +METF10004 PO; +OMEP40CA2 PO; +ZOCO80TA PO
[2018-11-20 00:06] LABS: Lyme Disease IgG/IgM Antibodie <0.91 ISR (0.00-0.90); Lyme Disease IgM Ab Quantitati <0.80 index (0.00-0.79)
== END ==
LOC: M LAB REF 12:14
PROVIDERS: ATTEND Family Medicine
DX: Z11.59 Encounter for screening for other viral diseases (principal)

== ENCOUNTER → 2019-10-20 | Outpatient (REF) | payer MEDICARE ==
[~2019-10-20] MED LIST changes: -ASPI81TA85 PO; +ASPI81TA86 PO; -OMEP40CA2 PO; +OMEP40CA97 PO
== END ==
LOC: M LAB REF 15:00
PROVIDERS: ATTEND Physician Assistant
DX: L02.01 Cutaneous abscess of face (principal)

== ENCOUNTER → 2020-02-13 | Outpatient (CLI) | payer MEDICARE ==
[~2020-02-13] MED LIST changes: +KETO10TAB PO
--- NOTE | 2020-02-13 11:17 | REP ---
INDICATION: CONTUSION. COMPARISON: PA and lateral chest dated 03/03/2014. TECHNIQUE: Right ribs four views, PA chest single-view. FINDINGS: There is no right rib fracture or other rib abnormality. There is no pneumothorax, hemothorax or pulmonary contusion. No focal or diffuse pleural thickening. There is chronic elevation of the right hemidiaphragm, unchanged. IMPRESSION: No right rib fracture or other right rib abnormality. Chronic elevation of the right hemidiaphragm. <Electronically signed by Ash Mitchell > 02/13/20 [id number]
--- NOTE | 2020-02-13 11:20 | REP ---
INDICATION: PAIN. COMPARISON: Abdomen and pelvis CT dated 07/17/2018. TECHNIQUE: Two views. FINDINGS: There is moderate femoroacetabular joint space narrowing. This may represent mild osteoarthritis. Mineralization is normal. There is no fracture or dislocation. There are no calcifications. IMPRESSION: Moderate joint space narrowing, likely early osteoarthritic change. If symptoms persist or worsen consider MRI for follow-up. <Electronically signed by Ash Mitchell > 02/13/20 [id number]
--- NOTE | 2020-02-13 11:23 | REP ---
INDICATION: LOW BACK PAIN. COMPARISON: Abdomen and pelvis CT dated 07/17/2018. TECHNIQUE: Five views. FINDINGS: Vertebral body heights and interspacing are unremarkable. There is grade 1 anterolisthesis of L4 on L5. There is no spondylolysis. The pedicles and facet articulations are unremarkable. The sacroiliac articulations are unremarkable. IMPRESSION: Grade 1 anterolisthesis of L4 on L5 without spondylolysis. This is likely degenerative. Otherwise, negative lumbar spine. <Electronically signed by Ash Mitchell > 02/13/20 [id number]
== END ==
LOC: M WUC 10:13
PROVIDERS: ATTEND Physician Assistant
DX: M54.5 Low back pain (principal); S20.211A Contusion of right front wall of thorax, initial encounter; M25.551 Pain in right hip; X58.XXXA Exposure to other specified factors, initial encounter; Y92.89 Other specified places as the place of occurrence of the external cause; Y93.9 Activity, unspecified; Y99.9 Unspecified external cause status

== ENCOUNTER 2020-02-15 16:34 | Emergency (ER) | payer MEDICARE ==
[~2020-02-15] VITALS: Ht 185.4 cm; Wt 112.0 kg
[~2020-02-15 16:34] MED LIST changes: -KETO10TAB PO
[2020-02-15 16:35] VITALS: BP 128/78
[2020-02-15] MEDS ORDERED: KETO10TAB PO (17:24)
== END 2020-02-15 17:44 | disposition home or self-care (01) ==
LOC: M ED 16:34
DX: M54.31 Sciatica, right side (principal); M48.061 Spinal stenosis, lumbar region without neurogenic claudication; E11.9 Type 2 diabetes mellitus without complications; Z88.0 Allergy status to penicillin; Z88.1 Allergy status to other antibiotic agents; Z79.82 Long term (current) use of aspirin; Z79.899 Other long term (current) drug therapy

== ENCOUNTER → 2020-05-27 | Outpatient (CLI) | payer MEDICARE ==
[~2020-05-27] MED LIST changes: +KETO10TAB PO
--- NOTE | 2020-05-27 14:07 | REP ---
INDICATION: PREOP TESTING. COMPARISON: 03/03/2014. TECHNIQUE: Two views FINDINGS: Elevation of the right diaphragm is again noted and unchanged. No pleural effusion or acute infiltrate. There is some minor fibrotic changes at the left CP angle, stable. No pulmonary nodule or mass. Heart is not enlarged. The aorta shows mild calcifications at the arch but without aneurysm. Airway intact. No widening of the mediastinum. Karla grossly unremarkable. The bony thorax shows no compression deformity or focal lesion. No free air under the diaphragm. IMPRESSION: 1. Basilar scarring with elevation of the right diaphragm, chronic and stable. No acute cardiopulmonary change. <Electronically signed by Catrachito Lopez > 05/27/20 [id number]
== END ==
LOC: M WUC 13:33
PROVIDERS: ATTEND Orthopaedic Surgery
DX: Z01.810 Encounter for preprocedural cardiovascular examination (principal); J98.4 Other disorders of lung; J98.6 Disorders of diaphragm; M17.0 Bilateral primary osteoarthritis of knee

== ENCOUNTER → 2020-05-27 | Outpatient (REF) | payer MEDICARE ==
[2020-05-27 12:21] LABS: INR 0.93; PROTHROMBIN TIME 12.6 SECONDS (12.5-14.3)
== END ==
LOC: M LAB REF 11:58
PROVIDERS: ATTEND Family Medicine
DX: Z01.811 Encounter for preprocedural respiratory examination (principal); M17.0 Bilateral primary osteoarthritis of knee

== ENCOUNTER 2020-09-13 23:57 | Inpatient (IN) | payer MEDICARE ==
[~2020-09-13] VITALS: Ht 185.4 cm; Wt 111.4 kg
[~2020-09-13 23:57] MED LIST changes: +OMEP40CA4 PO; -OMEP40CA97 PO
[2020-09-14] MEDS ORDERED: MORPHINE 4 MG/ML 1ML VIAL/SYRINGE (J2270) IV ONE (01:30)
[2020-09-14] MEDS ORDERED: ONDANSETRON 4MG/2ML VIAL IV ONE ×2 (01:30→11:10)
[2020-09-14] MEDS ORDERED: NS 500 ML IV ONE (01:30)
[2020-09-14 01:52] LABS: BASO # 0.1 10^3/uL (0.0-0.2); BASO % 0.4 % (0.0-1.0); EOS % 0.2 % (0.0-3.0); HEMATOCRIT 42.9 % (42.0-52.0); HEMOGLOBIN 13.5 g/dl (13.5-17.5); LYMPH # 1.3 10^3/uL (1.5-5.0); MEAN CORPUSCULAR HEMOGLOBIN 27.7 pg (27.0-33.0); MEAN CORPUSCULAR HGB CONC 31.5 g/dl (32.0-36.5); MEAN CORPUSCULAR VOLUME 87.9 fl (80.0-96.0); MONO # 0.7 10^3/uL (0.0-0.8); MONO % 5.5 % (2.0-8.0); NEUTROPHILS # 11.1 10^3/uL (1.5-8.5); NEUTROPHILS % 83.4 % (36.0-66.0); PLATELET COUNT, AUTOMATED 298 10^3/uL (150-450); RED BLOOD COUNT 4.88 10^6/uL (4.30-6.10); WHITE BLOOD COUNT 13.3 10^3/uL (4.0-10.0)
[2020-09-14 02:30] LABS: ALBUMIN 3.6 GM/DL (3.2-5.2); ALT/SGPT 14 U/L (12-78); BILIRUBIN,DIRECT 0.1 MG/DL (0.0-0.2); BILIRUBIN,TOTAL 0.4 MG/DL (0.2-1.0); BLOOD UREA NITROGEN 13 MG/DL (7-18); CALCIUM LEVEL 8.6 MG/DL (8.8-10.2); CARBON DIOXIDE LEVEL 27 MEQ/L (21-32); CHLORIDE LEVEL 106 MEQ/L (98-107); CREATININE FOR GFR 0.98 MG/DL (0.70-1.30); GLOMERULAR FILTRATION RATE > 60.0 (>42); GLUCOSE, FASTING 232 MG/DL (70-100); LIPASE 80 U/L (73-393); POTASSIUM SERUM 3.9 MEQ/L (3.5-5.1); SODIUM LEVEL 139 MEQ/L (136-145); TOTAL PROTEIN 6.9 GM/DL (6.4-8.2)
[2020-09-14 02:33] LABS: CK-MB VALUE MASS < 1.0 NG/ML (<3.6); CPK CREATINE PHOSPHOKINASE 29 U/L (39-308); MB/CK RELATIVE INDEX 3.45 (< OR =4); TROPONIN I < 0.02 NG/ML (< 0.10)
[2020-09-14] MEDS: MORPHINE 4 MG/ML 1ML VIAL/SYRINGE (J2270) IV PRN ×2 (03:38→08:19)
--- NOTE | 2020-09-14 04:42 | REPVR ---
PROCEDURE INFORMATION: Exam: CT Abdomen And Pelvis With Contrast Exam date and time: 09/14/2020 2:01 AM Age: 74 years old Clinical indication: Abdominal pain; Other: Severe; Additional info: Severe abdominal pain, n/v, across abdomen TECHNIQUE: Imaging protocol: Computed tomography of the abdomen and pelvis with contrast. Radiation optimization: All CT scans at this facility use at least one of these dose optimization techniques: automated exposure control; mA and/or kV adjustment per patient size (includes targeted exams where dose is matched to clinical indication); or iterative reconstruction. Contrast material: ISO; Contrast volume: 100 ml; Contrast route: INTRAVENOUS (IV); COMPARISON: 1. CT ABD/PEL W/IV CONTRAST ONLY 2018-07-17 14:17 2. Pelvis, limited US 2018-07-18 14:27 FINDINGS: Lungs: Dependent subsegmental pulmonary atelectasis. Liver: Normal. No mass. Gallbladder and bile ducts: Gallbladder distension with mild pericholecystic stranding. Correlate with ultrasound for acute cholecystitis. Pancreas: Normal. No ductal dilation. Spleen: Normal. No splenomegaly. Adrenal glands: Normal. No mass. Kidneys and ureters: Normal. No hydronephrosis. Stomach and bowel: Tablets in the stomach. Mild colonic diverticulosis without evidence for acute diverticulitis. Slightly irregular duodenal bulb and mildly thickened gastric antrum, correlate for gastritis. Large duodenal diverticulum measuring 5.6 cm. Appendix: No evidence of appendicitis. Intraperitoneal space: Unremarkable. No free air. No significant fluid collection. Vasculature: Mild to moderate aortic and iliac artery atherosclerotic calcification. Lymph nodes: Unremarkable. No enlarged lymph nodes. Urinary bladder: Unremarkable as visualized. Reproductive: Mild prostate gland enlargement measuring 5 cm. Bones/joints: Bilateral sacroiliitis. 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 Moderate to severe L4-L5 degenerative spinal stenosis. Minimal L4-L5 anterolisthesis. Soft tissues: Bilateral fat protruding inguinal hernias. IMPRESSION: 1. Gallbladder distension with mild pericholecystic stranding. Correlate with ultrasound for acute cholecystitis. 2. Slightly irregular duodenal bulb and mildly thickened gastric antrum, correlate for gastritis. Electronically signed by: Osbaldo Lord On 09/14/2020 04:42:03 AM
--- NOTE | 2020-09-14 09:17 | REPVR ---
PROCEDURE INFORMATION: Exam: US Abdomen, Limited; Right Upper Quadrant Exam date and time: 09/14/2020 6:49 AM Age: 74 years old Clinical indication: Abdominal pain; Acute; Additional info: Ruq abd pain TECHNIQUE: Imaging protocol: US abdomen. Real time ultrasound with image documentation. Limited exam focused on the right upper quadrant. COMPARISON: CT ABD/PEL W/IV CONTRAST ONLY 09/14/2020 2:52 AM FINDINGS: Liver: The liver is homogeneous in echotexture. No demonstrated mass or intrahepatic biliary ductal dilatation. Gallbladder: The gallbladder contains sludge without demonstrated stones. It appears distended, measuring 12.4 x 4.6 x 4.7 cm. Its wall is mildly thickened at 9 mm, and there is no significant pericholecystic fluid. Sonographic Hill sign was not reported as positive. Common bile duct: The common bile duct is normal in size for a patient of this age at 5.7 mm. Pancreas: The pancreas is obscured by overlying bowel gas. Right kidney: The right kidney measures 14.1 x 8.0 x 6.8 cm. Normal appearing echotexture. There is no hydronephrosis or demonstrated renal stone, cyst or mass. IMPRESSION: Distended gallbladder containing sludge without demonstrated stones, with mild wall thickening. Findings are of uncertain significance, potentially relating to acalculous cholecystitis, but sonographic Hill sign was not reported as positive. Electronically signed by: Cam Guajardo On 09/14/2020 09:16:49 AM
[2020-09-14 10:21] LABS: BASO # 0.1 10^3/uL (0.0-0.2); BASO % 0.2 % (0.0-1.0); LYMPH # 0.8 10^3/uL (1.5-5.0); LYMPH % 3.5 % (24.0-44.0); MONO # 1.7 10^3/uL (0.0-0.8); MONO % 7.3 % (2.0-8.0); NEUTROPHILS # 20.1 10^3/uL (1.5-8.5); NEUTROPHILS % 88.6 % (36.0-66.0)
[2020-09-14 10:23] LABS: WHITE BLOOD COUNT 22.7 10^3/uL (4.0-10.0)
[2020-09-14 10:38] LABS: ALBUMIN 3.4 GM/DL (3.2-5.2); BILIRUBIN,DIRECT 0.1 MG/DL (0.0-0.2); BILIRUBIN,TOTAL 0.7 MG/DL (0.2-1.0)
[2020-09-14] MEDS ORDERED: MORPHINE 4 MG/ML 1ML VIAL/SYRINGE (J2270) IV PRN (11:10)
[2020-09-14] MEDS ORDERED: CIPROFLOXACIN 400 MG in IV 1 EA IV ONE (11:10)
[2020-09-14] MEDS ORDERED: metroNIDAZOLE 500 MG in IV 1 EA IV ONE (11:10)
[2020-09-14] MEDS: NS 1,000 ML IV SCH (11:34)
[2020-09-14] MEDS ORDERED: VENTAER INH (11:38)
[2020-09-14] MEDS ORDERED: ASPI81TA26 PO (11:38)
[2020-09-14] MEDS ORDERED: TRUL0.5I SC (11:39)
[2020-09-14] MEDS ORDERED: ramipriL 5 MG CAP PO ONE (12:25)
[2020-09-14] MEDS ORDERED: ALBUTEROL 90 MCG/ACT 8GM HFA INHALER INH PRN (12:25)
[2020-09-14] MEDS ORDERED: FLUTICASONE PROP 0.05% NASAL SPRAY 16 GM (FLONASE) NARES PRN (12:25)
[2020-09-14] MEDS ORDERED: NS 1,000 ML IV ONE (12:30)
[2020-09-14 12:35] LABS: RSV AMPLIFICATION NEGATIVE (NEGATIVE)
[2020-09-14] MEDS ORDERED: GLUCOSE 4GM CHEW TABLET PO PRN (12:35)
[2020-09-14] MEDS ORDERED: GLUCAGON INJ 1MG VIAL SC PRN (12:35)
[2020-09-14] MEDS ORDERED: DEXTROSE 50% 50 ML SYRINGE IV PRN (12:35)
--- NOTE | 2020-09-14 12:43 | HPEPDOC ---
General Date of Admission 09/14/20 Date of Service: Sep 14, 2020 Chief Complaint The patient is a 74-year-old male admitted with a reason for visit of Abd Pain. Source: Patient Exam Limitations: No limitations History of Present Illness Patient 75 years old male with past medical history of type 2 diabetes, hyperlipidemia presented to hospital with abdominal pain. Patient stated that around yesterday morning he started feeling abdominal pain diffuse which became more on the right upper quadrant, 7 out of 10. He stated that his pain was associated with nausea. He stated that he had fatty food early in the morning. Patient denied fever or chills diarrhea or dysuria. In ER patient was found to have leukocytosis of 22.7, lactic acid 2.4. CT abdomen/pelvis showed Gallbladder distension with mild pericholecystic stranding. Ultrasound of ga llbladder showed Distended gallbladder containing sludge without demonstrated stones, with mild wall thickening. Findings are of uncertain significance, potentially relating to acalculous cholecystitis. Dr. Messina was contacted by ER physician and he recommended admit patient for cholecystectomy Home Medications Scheduled Aspirin (Aspirin EC) 81 Mg Tablet.dr, 81 MG PO DAILY, (Reported) Dulaglutide (Trulicity) 1.5 Mg/0.5 Ml Pen.injctr, 1.5 MG SC QWEEK, (Reported) SATURDAYS Glipizide (Glipizide) 10 Mg Tablet, 10 MG PO DAILY, (Reported) Glipizide (Glipizide) 10 Mg Tablet, 5 MG PO QPM, (Reported) TAKES AT DINNER Magnesium Chloride (Slow-Mag) 71.5 Mg Tablet.dr, 1 TAB PO BID, (Reported) Metformin HCl (Metformin HCl) 1,000 Mg Tablet, 1,000 MG PO BID, (Reported) Metformin HCl (Metformin HCl) 500 Mg Tablet, 500 MG PO DAILY, (Reported) AT 1200 Omeprazole (Omeprazole) 40 Mg Capsule.dr, 40 MG PO QHS, (Reported) Pioglitazone HCl (Pioglitazone HCl) 30 Mg Tablet, 30 MG PO DAILY, (Reported) Ramipril (Ramipril) 2.5 Mg Capsule, 2.5 MG PO DAILY, (Reported) Simvastatin (Zocor) 80 Mg Tablet, 80 MG PO QHS, (Reported) Tamsulosin Hcl (Tamsulosin HCl) 0.4 Mg Capsule, 0.8 MG PO DAILY, (Reported) Scheduled PRN Acetaminophen (Acetaminophen) 500 Mg Tablet, 500 MG PO Q6H PRN for PAIN, (Reported) Albuterol Sulfate (Ventolin Hfa) 18 Gm Hfa.aer.ad, 2 PUFF INH Q4H PRN for SOB/WHEEZING, (Reported) Fluticasone Propionate (Fluticasone Propionate) 16 Gm [place].susp, 2 SPRAYS NARES DAILY PRN for CONGESTION, (Reported) Allergies Coded Allergies: Penicillins (Verified Allergy, Unknown, SEVERE RASH, 07/17/18) ampicillin (Verified Allergy, Unknown, hives, 02/15/20) Past Medical History Medical History Type 2 diabetes, hyperlipidemia Surgical History Right knee replacement Family History I personally reviewed family history and found not pertinent Social History * Smoker: Denies Alcohol: Denies Drugs: denies A-FIB/CHADSVASC A-FIB History Current/History of A-Fib/PAF?: No Current PO Anticoag Therapy: No Review of Systems Constitutional: Denies: Chills, Fever Eyes: Denies: Pain ENT: Denies: Head Aches Skin: Denies: Rash Pulmonary: Reports: Other Symptoms; Denies: Dyspnea Cardiovascular: Denies: Chest Pain, Palpitations, Orthopnea Gastrointestinal: Reports: Nausea, Abdominal Pain Genitourinary: Denies: Dysuria Hematologic: Denies: Bruising Endocrine: Denies: Polydipsia Musculoskeletal: Denies: Neck Pain Neurological: Denies: Weakness Psych: Reports: Mood Normal Physical Examination General Exam: Positive: Alert, Cooperative Eye Exam: Positive: PERRLA ENT Exam: Positive: Atraumatic Neck Exam: Positive: Supple Chest Exam: Positive: Clear to auscultation Heart Exam: Positive: Rate Normal Telemetry: Positive: No significant arrhythmia Abdomen Exam: Positive: Tenderness (Right upper quadrant) Extremity Exam: Negative: Clubbing, Cyanosis Skin Exam: Positive: Nl turgor and temperature Neuro Exam: Positive: Strength at 5/5 X4 ext Psych Exam: Positive: Mental status NL Vital Signs Vital Signs Date Time Temp Pulse Resp B/P (MAP) Pulse Ox O2 Delivery O2 Flow Rate FiO2 09/14/20 10:00 100.0 113 18 164/83 (110) 97 Room Air Laboratory Data Labs 24H Laboratory Tests 2 09/14/20 01:42: Immature Granulocyte % (Auto) 0.5, Neutrophils (%) (Auto) 83.4H, Lymphocytes (%) (Auto) 10.0L, Monocytes (%) (Auto) 5.5, Eosinophils (%) (Auto) 0.2, Basophils (%) (Auto) 0.4, Neutrophils # (Auto) 11.1H, Lymphocytes # (Auto) 1.3L, Monocytes # (Auto) 0.7, Eosinophils # (Auto) 0.0, Basophils # (Auto) 0.1, Nucleated Red Blood Cells % (auto) 0.0, Anion Gap 6L, Glomerular Filtration Rate > 60.0, Lactic Acid Level 2.4*H, Calcium Level 8.6L, Total Bilirubin 0.4, Direct Bilirubin 0.1, Aspartate Amino Transf (AST/SGOT) 6L, Alanine Aminotransferase (ALT/SGPT) 14, Alkaline Phosphatase 77, Total Creatine Kinase 29L, Creatine Kinase MB < 1.0, Creatine Kinase MB Relative Index 3.45, Troponin I < 0.02, Total Protein 6.9, Albumin 3.6, Albumin/Globulin Ratio 1.1, Lipase 80 09/14/20 03:12: Urine Color YELLOW, Urine Appearance CLEAR, Urine pH 5.0, Urine Specific [place] 1.033, Urine Protein NEGATIVE, Urine Glucose (UA) 3+H, Urine Ketones NEGATIVE, Urine Blood NEGATIVE, Urine Nitrite NEGATIVE, Urine Bilirubin NEGATIVE, Urine Urobilinogen 0.2, Urine Leukocyte Esterase NEGATIVE, Urine WBC (Auto) 2, Urine RBC (Auto) 2, Urine Hyaline Casts (Auto) 0, Urine Bacteria (Auto) NEGATIVE, Urine Squamous Epithelial Cells 0, Urine Sperm (Auto) 09/14/20 07:13: Lactic Acid Followup at 4 Hours 2.1*H 09/14/20 10:03: Immature Granulocyte % (Auto) 0.4, Neutrophils (%) (Auto) 88.6H, Lymphocytes (%) (Auto) 3.5L, Monocytes (%) (Auto) 7.3, Eosinophils (%) (Auto) 0.0, Basophils (%) (Auto) 0.2, Neutrophils # (Auto) 20.1H, Lymphocytes # (Auto) 0.8L, Monocytes # (Auto) 1.7H, Eosinophils # (Auto) 0.0, Basophils # (Auto) 0.1, Nucleated Red Blood Cells % (auto) 0.0, Total Bilirubin 0.7#, Direct Bilirubin 0.1, Aspartate Amino Transf (AST/SGOT) 12, Alanine Aminotransferase (ALT/SGPT) 16, Alkaline Phosphatase 78, Total Protein 7.0, Albumin 3.4, Albumin/Globulin Ratio 0.9, Immature Granulocyte # (Auto) 0.1H 09/14/20 11:47: CBC/BMP Laboratory Tests 09/14/20 01:42 09/14/20 10:03 Microbiology Microbiology 09/14/20 Blood Culture, Received Pending 09/14/20 Blood Culture, Received Pending Assessment/Plan Patient 75 years old male with past medical history of type 2 diabetes, hyperlipidemia presented to hospital with abdominal pain. Patient stated that around yesterday morning he started feeling abdominal pain diffuse which became more on the right upper quadrant, 7 out of 10. He stated that his pain was associated with nausea. He stated that he had fatty food early in the morning. Patient denied fever or chills diarrhea or dysuria. In ER patient was found to have leukocytosis of 22.7, lactic acid 2.4. CT abdomen/pelvis showed Gallbladder distension with mild pericholecystic stranding. Ultrasound of gallbladder showed Distended gallbladder containing sludge without demonstrated stones, with mild wall thickening. Findings are of uncertain significance, potentially relating to acalculous cholecystitis. Dr. Messina was contacted by ER physician and he recommended admit patient for cholecystectomy Problems (1) Sepsis Status: Acute Problem Text: Patient developed lactic acidosis, tachycardia with leukocytosis. Also patient has a low-grade fever Most likely secondary to acute cholecystitis Await blood culture Flagyl IV, ciprofloxacin IV IV fluid (2) Acute cholecystitis Status: Acute Problem Text: Appreciate/agree with surgical consult (3) Hyperlipidemia Status: Chronic Problem Text: Continue statin (4) Diabetes mellitus Status: Chronic Problem Text: Insulin sliding scale Plan / VTE VTE Prophylaxis Ordered?: Yes EVELIA HOYOS DO Sep 14, 2020 12:42
[2020-09-14 12:50] VITALS: BP 159/58
[2020-09-14] MEDS: ASPIRIN 81MG ENTERIC TABLET PO SCH (12:51)
[2020-09-14] MEDS: TAMSULOSIN 0.4 MG CAP PO SCH (12:51)
[2020-09-14] MEDS: metroNIDAZOLE 500 MG in IV 1 EA IV SCH ×2 (14:00→21:50)
[2020-09-14] MEDS: HumaLOG INSULIN (NovoLOG) PER UNIT SC SCH ×2 (17:30→21:00)
[2020-09-14 18:00] VITALS: BP 120/60
[2020-09-14] MEDS ORDERED: metroNIDAZOLE 750 MG in IV 1 EA IV SCH (21:00)
--- NOTE | 2020-09-14 21:12 | CR ---
CONSULTATION DATE: 09/14/2020 REASON FOR CONSULTATION: Acute cholecystitis. BRIEF HISTORY OF PRESENT ILLNESS: The patient is a 75-year-old gentleman that I have seen in the past for several different issues including colonoscopies, etc., who presents for abdominal pain which was diffuse and then more centered in the right upper quadrant radiating up to his right flank. He had some fatty food yesterday morning as well as for lunch and developed it in the afternoon. His pain and discomfort showed up before midnight and then throughout the night had some workup that eventually centered on gallbladder issues, gallbladder wall thickening. Although the thought was that there was a mild wall thickening and they did not appreciate any Hill's sign although that is not clinically what we are appreciating. The patient has not had any previous episodes of cholecystitis in the past. PAST MEDICAL HISTORY: The patient's past medical history is significant for: 1. History of diabetes mellitus. 2. History of hyperlipidemia. 3. History of obesity. PAST SURGICAL HISTORY: The patient's past surgical history is significant for right knee replacement. MEDICATIONS: 1. Aspirin. 2. Trulicity. 3. Glipizide. 4. Slow-Mag. 5. Metformin. 6. Omeprazole. 7. P.o. Glitazone. 8. Ramipril. 9. Zocor. 10. Flomax. PHYSICAL EXAMINATION: GENERAL APPEARANCE: A 75-year-old gentleman who looks stated age. HEENT: Unremarkable. NECK: Supple without adenopathy. LUNGS: Clear to auscultation without crackles, wheezes or rhonchi. HEART: Regular, without murmur. ABDOMEN: Soft. He is tender in the right upper quadrant but he states that this tenderness is actually better than it was earlier this morning and last night. Overall he states that he feels more achy and bruised than he feels acute tenderness at this time. He has not had any bilirubinuria, no evidence of gallstone pancreatitis and the liver function tests have been normal. IMPRESSION AND PLAN: The patient has evidence of cholecystitis, and my recommendation at this time is initially when I had his report earlier this morning, the concern was whether he needed more urgent/emergent intervention with laparoscopic cholecystectomy. However after seeing him several times throughout the day, he continues to have some significant improvement and states that he only feels achy and much less tender than he was previously and feels as though it is probably related to the nausea and vomiting that he had previously. And his temperature has come down nicely to 98.5 later on this afternoon. Thus at this point we have had a discussion at length with the patient including operative intervention whether that will be performed here during this admission or after discharge as an outpatient, and much of this will be determined by his clinical course/improvement and overall availability of the O.R., etc. If he however develops increasing temperature or increasing pain tonight, we will re-discuss and readdress a possible operative intervention at an earlier time, even tonight if necessary.
[2020-09-14] MEDS: HEPARIN SOD (PORCINE) 5000UNITS/ML 1ML VIAL/SYRINGE SC SCH (21:50)
[2020-09-14] MEDS: SIMVASTATIN 40 MG TAB PO SCH (21:51)
[2020-09-14] MEDS: OMEPRAZOLE 20 MG CAP PO SCH (21:51)
[2020-09-14 22:00] VITALS: BP 120/61
[2020-09-15] MEDS: CIPROFLOXACIN 400 MG in IV 1 EA IV SCH ×2 (00:06→12:52)
[2020-09-15] MEDS: NS 1,000 ML IV SCH ×2 (00:07→11:47)
[2020-09-15] MEDS: metroNIDAZOLE 500 MG in IV 1 EA IV SCH ×3 (05:53→21:13)
[2020-09-15 06:00] VITALS: BP 133/78
[2020-09-15 06:47] LABS: HEMATOCRIT 38.4 % (42.0-52.0); MEAN CORPUSCULAR HEMOGLOBIN 27.5 pg (27.0-33.0); MEAN CORPUSCULAR HGB CONC 31.3 g/dl (32.0-36.5); MEAN CORPUSCULAR VOLUME 88.1 fl (80.0-96.0); PLATELET COUNT, AUTOMATED 222 10^3/uL (150-450); RED BLOOD COUNT 4.36 10^6/uL (4.30-6.10); WHITE BLOOD COUNT 13.4 10^3/uL (4.0-10.0)
[2020-09-15 07:13] LABS: ALBUMIN 2.8 GM/DL (3.2-5.2); ALT/SGPT 12 U/L (12-78); BILIRUBIN,TOTAL 1.2 MG/DL (0.2-1.0); BLOOD UREA NITROGEN 10 MG/DL (7-18); CALCIUM LEVEL 8.1 MG/DL (8.8-10.2); CARBON DIOXIDE LEVEL 26 MEQ/L (21-32); CHLORIDE LEVEL 106 MEQ/L (98-107); CREATININE FOR GFR 0.82 MG/DL (0.70-1.30); GLOMERULAR FILTRATION RATE > 60.0 (>42); GLUCOSE, FASTING 158 MG/DL (70-100); SODIUM LEVEL 137 MEQ/L (136-145); TOTAL PROTEIN 5.8 GM/DL (6.4-8.2)
[2020-09-15 07:14] LABS: MAGNESIUM LEVEL 1.8 MG/DL (1.8-2.4)
[2020-09-15] MEDS: HumaLOG INSULIN (NovoLOG) PER UNIT SC SCH ×4 (07:30→21:00)
[2020-09-15] MEDS: TAMSULOSIN 0.4 MG CAP PO SCH (09:35)
[2020-09-15] MEDS: ASPIRIN 81MG ENTERIC TABLET PO SCH (09:35)
[2020-09-15] MEDS: HEPARIN SOD (PORCINE) 5000UNITS/ML 1ML VIAL/SYRINGE SC SCH ×2 (09:35→21:13)
--- NOTE | 2020-09-15 11:08 | IPN ---
PROGRESS NOTE DATE: 09/15/2020 SUBJECTIVE: Patient states his abdominal pain is substantially improved from yesterday morning and slowly getting better since yesterday itself. Yesterday afternoon his white count dropped nicely down to 13.4. He has been afebrile overnight. OBJECTIVE: His abdomen is becoming less tender, less guarding. Less rebound and essentially mild discomfort with palpation. IMPRESSION AND PLAN: Patient has improving resolving cholecystitis. Will start him on a clear liquid diet and see how he tolerates this. Otherwise, if he has problems or increase in white count, pain, discomfort, he may need to proceed with operative intervention prior to discharge but I anticipate will be advancing his diet and then discharging him home in the morning.
[2020-09-15 14:00] VITALS: BP 137/81
--- NOTE | 2020-09-15 16:04 | IPNPDOC ---
Text Note Date of Service The patient was seen on 09/15/20. NOTE Subjective: No any acute events overnight. Patient stated that his abdominal pain subsided Objective: GENERAL APPEARANCE: NAD HEENT: no scleral icterus, no JVD, EOMI CARDIOVASCULAR: S1S2 LUNGS: CTA ABDOMEN: soft & mildly tender w palpation MUSCULOSKELETAL: no cyanosis, no swelling INTEGUMENT: no generalized pallor NEUROLOGICAL: cranial nerve function from 2-12 intact i, follows commands, speech not dysarthric Assessment and plan Patient 75 years old male with past medical history of type 2 diabetes, hyperlipidemia presented to hospital with abdominal pain. Patient stated that around yesterday morning he started feeling abdominal pain diffuse which became more on the right upper quadrant, 7 out of 10. He stated that his pain was associated with nausea. He stated that he had fatty food early in the morning. Patient denied fever or chills diarrhea or dysuria. In ER patient was found to have leukocytosis of 22.7, lactic acid 2.4. CT abdomen/pelvis showed Gallbladder distension with mild pericholecystic stranding. Ultrasound of gallbladder showed Distended gallbladder containing sludge without demonstrated stones, with mild wall thickening. Findings are of uncertain significance, potentially relating to acalculous cholecystitis. Dr. Messina was contacted by ER physician and he recommended admit patient for cholecystectomy (1) Sepsis Patient developed lactic acidosis, tachycardia with leukocytosis. Most likely secondary to acute cholecystitis blood culture negative Continue Flagyl IV, ciprofloxacin IV IV fluid Resolved today (2) Acute cholecystitis Surgical team upgraded diet to clear liquid today. They will proceed with riggins rgery if patient developed fever, pain or increased leukocytosis otherwise cholecystectomy in the outpatient settings (3) Hyperlipidemia Continue statin (4) Diabetes mellitus Insulin sliding scale VS,Fishbone, I+O VS, Fishbone, I+O Laboratory Tests 09/15/20 06:33 Vital Signs Date Time Temp Pulse Resp B/P (MAP) Pulse Ox O2 Delivery O2 Flow Rate FiO2 09/15/20 14:00 98.4 81 19 137/81 (99) 96 Room Air I&O- Last 24 Hours up to 6 AM 09/15/20 06:00 Intake Total 1520 ml Balance 1520 ml EVELIA HOYOS DO Sep 15, 2020 16:04
[2020-09-15 21:00] VITALS: BP 142/75
[2020-09-15] MEDS: OMEPRAZOLE 20 MG CAP PO SCH (21:13)
[2020-09-15] MEDS: SIMVASTATIN 40 MG TAB PO SCH (21:14)
[2020-09-16] MEDS: CIPROFLOXACIN 400 MG in IV 1 EA IV SCH ×2 (00:23→12:53)
[2020-09-16] MEDS: NS 1,000 ML IV SCH ×3 (01:52→13:10)
[2020-09-16] MEDS: metroNIDAZOLE 500 MG in IV 1 EA IV SCH ×3 (05:24→21:29)
[2020-09-16] MEDS: ACETAMINOPHEN 500 MG TAB PO PRN ×2 (05:24→21:37)
[2020-09-16 05:27] VITALS: BP 140/77
[2020-09-16 07:45] LABS: BASO % 0.3 % (0.0-1.0); EOS # 0.1 10^3/uL (0.0-0.5); EOS % 0.8 % (0.0-3.0); HEMATOCRIT 36.8 % (42.0-52.0); HEMOGLOBIN 11.9 g/dl (13.5-17.5); LYMPH % 11.7 % (24.0-44.0); MEAN CORPUSCULAR HEMOGLOBIN 28.5 pg (27.0-33.0); MEAN CORPUSCULAR HGB CONC 32.3 g/dl (32.0-36.5); MONO # 0.8 10^3/uL (0.0-0.8); MONO % 9.5 % (2.0-8.0); NEUTROPHILS # 6.8 10^3/uL (1.5-8.5); NEUTROPHILS % 77.4 % (36.0-66.0); PLATELET COUNT, AUTOMATED 218 10^3/uL (150-450); RED BLOOD COUNT 4.18 10^6/uL (4.30-6.10); WHITE BLOOD COUNT 8.7 10^3/uL (4.0-10.0)
[2020-09-16] MEDS: ASPIRIN 81MG ENTERIC TABLET PO SCH (07:55)
[2020-09-16] MEDS: TAMSULOSIN 0.4 MG CAP PO SCH (07:55)
[2020-09-16] MEDS: HumaLOG INSULIN (NovoLOG) PER UNIT SC SCH ×4 (07:56→21:29)
[2020-09-16] MEDS: HEPARIN SOD (PORCINE) 5000UNITS/ML 1ML VIAL/SYRINGE SC SCH ×2 (07:56→21:28)
[2020-09-16 08:14] LABS: ALBUMIN 2.6 GM/DL (3.2-5.2); ALT/SGPT 11 U/L (12-78); BILIRUBIN,TOTAL 0.8 MG/DL (0.2-1.0); BLOOD UREA NITROGEN 7 MG/DL (7-18); CALCIUM LEVEL 8.1 MG/DL (8.8-10.2); CARBON DIOXIDE LEVEL 29 MEQ/L (21-32); CHLORIDE LEVEL 106 MEQ/L (98-107); CREATININE FOR GFR 0.88 MG/DL (0.70-1.30); GLOMERULAR FILTRATION RATE > 60.0 (>42); GLUCOSE, FASTING 216 MG/DL (70-100); MAGNESIUM LEVEL 1.9 MG/DL (1.8-2.4); POTASSIUM SERUM 3.7 MEQ/L (3.5-5.1); SODIUM LEVEL 137 MEQ/L (136-145); TOTAL PROTEIN 6.2 GM/DL (6.4-8.2)
--- NOTE | 2020-09-16 13:27 | IPNPDOC ---
Text Note Date of Service The patient was seen on 09/16/20. NOTE Subjective: No any acute events overnight. No fever or chills Objective: GENERAL APPEARANCE: NAD HEENT: no scleral icterus, no JVD, EOMI CARDIOVASCULAR: S1S2 LUNGS: CTA ABDOMEN: soft & mildly tender w palpation MUSCULOSKELETAL: no cyanosis, no swelling INTEGUMENT: no generalized pallor NEUROLOGICAL: cranial nerve function from 2-12 intact i, follows commands, s peech not dysarthric Assessment and plan Patient 75 years old male with past medical history of type 2 diabetes, hyperlipidemia presented to hospital with abdominal pain. Patient stated that around yesterday morning he started feeling abdominal pain diffuse which became more on the right upper quadrant, 7 out of 10. He stated that his pain was associated with nausea. He stated that he had fatty food early in the morning. Patient denied fever or chills diarrhea or dysuria. In ER patient was found to have leukocytosis of 22.7, lactic acid 2.4. CT abdomen/pelvis showed Gallbladder distension with mild pericholecystic stranding. Ultrasound of gallbladder showed Distended gallbladder containing sludge without demonstrated stones, with mild wall thickening. Findings are of uncertain significance, potentially relating to acalculous cholecystitis. Dr. Messina was contacted by ER physician and he recommended admit patient for cholecystectomy (1) Sepsis Patient developed lactic acidosis, tachycardia with leukocytosis. Most likely secondary to acute cholecystitis blood culture negative Continue Flagyl IV, ciprofloxacin IV IV fluid Resolved (2) Acute cholecystitis Surgical team will proceed with laparoscopic cholecystectomy today (3) Hyperlipidemia Continue statin (4) Diabetes mellitus Insulin sliding scale VS,Fishbone, I+O VS, Fishbone, I+O Laboratory Tests 09/16/20 07:17 Vital Signs Date Time Temp Pulse Resp B/P (MAP) Pulse Ox O2 Delivery O2 Flow Rate FiO2 09/16/20 05:27 97.9 83 18 140/77 (98) 98 Room Air I&O- Last 24 Hours up to 6 AM 09/16/20 06:00 Intake Total 240 ml Output Total 1225 ml Balance -985 ml EVELIA HOYOS DO Sep 16, 2020 13:27
[2020-09-16 14:00] VITALS: BP 140/75
[2020-09-16] MEDS ORDERED: BUPIVACAINE/EPIN 0.25% 30 ML VIAL As Ordered ONE (16:55)
[2020-09-16] MEDS ORDERED: GLUCAGON INJ 1MG VIAL As Ordered ONE (16:55)
[2020-09-16] MEDS ORDERED: fentaNYL 250 MCG/5 ML INJECTION (J3010) As Ordered ONE (17:43)
[2020-09-16] MEDS ORDERED: ACETAMINOPHEN 1000MG 100ML IV BTL (OFIRMEV) (J0131 PER 10MG) As Ordered ONE (17:43)
[2020-09-16] MEDS ORDERED: LIDOCAINE 2% 100MG/5ML SDV (FOR ANES.) As Ordered ONE (17:43)
[2020-09-16] MEDS ORDERED: dexameTHASONE 4 MG/ML 1ML VIAL (J1100 PER 1MG) As Ordered ONE (17:43)
[2020-09-16] MEDS ORDERED: ROCURONIUM BROMIDE 50 MG/5 ML VIAL As Ordered ONE (17:43)
[2020-09-16] MEDS ORDERED: ONDANSETRON 4MG/2ML VIAL As Ordered ONE (17:43)
[2020-09-16] MEDS ORDERED: KETOROLAC 60MG 2ML VIAL As Ordered ONE (17:43)
[2020-09-16] MEDS ORDERED: SUGAMMADEX SODIUM 500 MG/5 ML VIAL (BRIDION) As Ordered ONE (17:43)
[2020-09-16] MEDS ORDERED: propofoL 200 MG/20 ML VIAL As Ordered ONE (17:43)
[2020-09-16] MEDS ORDERED: MIDAZOLAM INJ 2MG/2ML VIAL (J2250 PER 1MG) As Ordered ONE (17:43)
[2020-09-16] MEDS ORDERED: LABETALOL 100MG/20ML VIAL As Ordered ONE (17:50)
[2020-09-16] MEDS ORDERED: oxyCODONE 5MG TAB PO PRN (19:05)
[2020-09-16] MEDS ORDERED: LR 1,000 ML IV SCH (19:05)
[2020-09-16] MEDS ORDERED: MORPHINE 2 MG/ML 1ML VIAL (J2270) IV PRN (19:05)
[2020-09-16] MEDS ORDERED: ONDANSETRON 4MG/2ML VIAL IV PRN (19:05)
[2020-09-16] MEDS ORDERED: METOCLOPRAMIDE INJ 10MG/2ML VIAL (J2765 PER 1) IV PRN (19:05)
[2020-09-16] MEDS ORDERED: fentaNYL 100 MCG/2 ML INJECTION (J3010) IV PRN (19:05)
[2020-09-16 19:30] VITALS: BP 139/79
[2020-09-16 20:30] VITALS: BP 138/79
[2020-09-16] MEDS: OMEPRAZOLE 20 MG CAP PO SCH (21:29)
[2020-09-16] MEDS: SIMVASTATIN 40 MG TAB PO SCH (21:29)
[2020-09-16 21:30] VITALS: BP 152/88
[2020-09-16 22:30] VITALS: BP 149/89
[2020-09-17 00:30] VITALS: BP 148/88
[2020-09-17] MEDS: CIPROFLOXACIN 400 MG in IV 1 EA IV SCH (01:06)
[2020-09-17 06:00] VITALS: BP 145/88
[2020-09-17] MEDS: metroNIDAZOLE 500 MG in IV 1 EA IV SCH (06:04)
[2020-09-17 06:49] LABS: BASO % 0.1 % (0.0-1.0); HEMATOCRIT 38.6 % (42.0-52.0); HEMOGLOBIN 12.7 g/dl (13.5-17.5); LYMPH # 0.6 10^3/uL (1.5-5.0); MEAN CORPUSCULAR HEMOGLOBIN 28.3 pg (27.0-33.0); MEAN CORPUSCULAR HGB CONC 32.9 g/dl (32.0-36.5); MONO % 6.6 % (2.0-8.0); NEUTROPHILS # 13.5 10^3/uL (1.5-8.5); NEUTROPHILS % 88.8 % (36.0-66.0); PLATELET COUNT, AUTOMATED 255 10^3/uL (150-450); RED BLOOD COUNT 4.49 10^6/uL (4.30-6.10); WHITE BLOOD COUNT 15.2 10^3/uL (4.0-10.0)
[2020-09-17 07:12] LABS: ALBUMIN 2.5 GM/DL (3.2-5.2); ALT/SGPT 15 U/L (12-78); BILIRUBIN,TOTAL 0.9 MG/DL (0.2-1.0); BLOOD UREA NITROGEN 10 MG/DL (7-18); CALCIUM LEVEL 8.2 MG/DL (8.8-10.2); CARBON DIOXIDE LEVEL 24 MEQ/L (21-32); CHLORIDE LEVEL 104 MEQ/L (98-107); CREATININE FOR GFR 0.87 MG/DL (0.70-1.30); GLOMERULAR FILTRATION RATE > 60.0 (>42); GLUCOSE, FASTING 242 MG/DL (70-100); MAGNESIUM LEVEL 1.8 MG/DL (1.8-2.4); POTASSIUM SERUM 3.7 MEQ/L (3.5-5.1); SODIUM LEVEL 136 MEQ/L (136-145); TOTAL PROTEIN 6.2 GM/DL (6.4-8.2)
[2020-09-17] MEDS: TAMSULOSIN 0.4 MG CAP PO SCH (08:40)
[2020-09-17] MEDS: ASPIRIN 81MG ENTERIC TABLET PO SCH (08:40)
[2020-09-17] MEDS: HumaLOG INSULIN (NovoLOG) PER UNIT SC SCH (08:41)
[2020-09-17] MEDS: HEPARIN SOD (PORCINE) 5000UNITS/ML 1ML VIAL/SYRINGE SC SCH (08:42)
[2020-09-17 10:00] VITALS: BP 143/85
--- NOTE | 2020-09-17 13:47 | DS.PDOC ---
Discharge Summary General Date of Admission Sep 14, 2020 at 12:23 Date of Discharge 09/17/20 Discharge Summary PROCEDURES PERFORMED DURING STAY: [None]. ADMITTING DIAGNOSES: Sepsis Acute cholecystitis Hyperlipidemia Diabetes mellitus DISCHARGE DIAGNOSES: Sepsis Acute cholecystitis Hyperlipidemia Diabetes mellitus COMPLICATIONS/CHIEF COMPLAINT: Acute Cholecystitis. HISTORY OF PRESENT ILLNESS: Patient 75 years old male with past medical history of type 2 diabetes, hyperlipidemia presented to hospital with abdominal pain. Patient stated that around yesterday morning he started feeling abdominal pain diffuse which became more on the right upper quadrant, 7 out of 10. He stated that his pain was associated with nausea. He stated that he had fatty food early in the morning. Patient denied fever or chills diarrhea or dysuria. In ER patient was found to have leukocytosis of 22.7, lactic acid 2.4. CT abdomen/pelvis showed Gallbladder distension with mild pericholecystic stranding. Ultrasound of gallbladder showed Distended gallbladder containing sludge without demonstrated stones, with mild wall thickening. Findings are of uncertain significance, potentially relating to acalculous cholecystitis. Dr. Messina was contacted by ER physician and he recommended admit patient for cholecystectomy HOSPITAL COURSE: During the hospital stay the following issues addressed (1) Sepsis Patient developed lactic acidosis, tachycardia with leukocytosis. Most likely secondary to acute cholecystitis blood culture negative. Patient received treatment with Flagyl IV, ciprofloxacin IV Sepsis resolved (2) Acute cholecystitis Surgical team proceeded with laparoscopic cholecystectomy yesterday (3) Hyperlipidemia Continue statin (4) Diabetes mellitus Insulin sliding scale DISCHARGE MEDICATIONS: Please see below. ALLERGIES: Please see below. PHYSICAL EXAMINATION ON DISCHARGE: VITAL SIGNS: Please see below. GENERAL APPEARANCE: NAD HEENT: no scleral icterus, no JVD, EOMI CARDIOVASCULAR: S1S2 LUNGS: CTA ABDOMEN: soft & mildly tender w palpation MUSCULOSKELETAL: no cyanosis, no swelling INTEGUMENT: no generalized pallor NEUROLOGICAL: cranial nerve function from 2-12 intact i, follows commands, speech not dysarthric LABORATORY DATA: Please see below. PROGNOSIS: Fair ACTIVITY: [As tolerated]. DIET: Cardiac DISPOSITION: 01 Home, Self-Care. DISCHARGE INSTRUCTIONS: Follow-up with surgical team in 2 weeks ITEMS TO FOLLOWUP ON ON OUTPATIENT: Follow-up with PCP in 3 to 5 days DISCHARGE CONDITION: [Stable]. TIME SPENT ON DISCHARGE: 40 minutes. Vital Signs/I&Os Vital Signs Date Time Temp Pulse Resp B/P (MAP) Pulse Ox O2 Delivery O2 Flow Rate FiO2 09/17/20 10:00 97.8 89 22 143/85 (104) 96 Room Air 09/16/20 18:34 10.0 I&O- Last 24 Hours up to 6 AM 09/17/20 06:00 Intake Total 2000 ml Output Total 1750 ml Balance 250 ml Laboratory Data Labs 24H Laboratory Tests 2 09/16/20 21:21: Bedside Glucose (Misc Panel) 278H 09/17/20 06:28: Immature Granulocyte % (Auto) 0.5, Neutrophils (%) (Auto) 88.8H, Lymphocytes (%) (Auto) 4.0L, Monocytes (%) (Auto) 6.6, Eosinophils (%) (Auto) 0.0, Basophils (%) (Auto) 0.1, Neutrophils # (Auto) 13.5H, Lymphocytes # (Auto) 0.6L, Monocytes # (Auto) 1.0H, Eosinophils # (Auto) 0.0, Basophils # (Auto) 0.0, Nucleated Red Blood Cells % (auto) 0.0, Anion Gap 8, Glomerular Filtration Rate > 60.0, Calcium Level 8.2L, Magnesium Level 1.8, Total Bilirubin 0.9, Aspartate Amino Transf (AST/SGOT) 11, Alanine Aminotransferase (ALT/SGPT) 15, Alkaline Phosphatase 56, Total Protein 6.2L, Albumin 2.5L, Albumin/Globulin Ratio 0.7 CBC/BMP Laboratory Tests 09/17/20 06:28 FSBS Laboratory Tests Test 09/16/20 21:21 Range/Units Bedside Glucose (Misc Panel) 278 83-110 MG/DL Microbiology Microbiology 09/14/20 Blood Culture - Preliminary, Resulted No Growth after 72 hours. All specime... 09/14/20 Blood Culture - Preliminary, Resulted No Growth after 72 hours. All specime... Discharge Medications Scheduled Aspirin (Aspirin EC) 81 Mg Tablet.dr, 81 MG PO DAILY, (Reported) Dulaglutide (Trulicity) 1.5 Mg/0.5 Ml Pen.injctr, 1.5 MG SC QWEEK, (Reported) SATURDAYS Glipizide (Glipizide) 10 Mg Tablet, 10 MG PO DAILY, (Reported) Glipizide (Glipizide) 10 Mg Tablet, 5 MG PO QPM, (Reported) TAKES AT DINNER Magnesium Chloride (Slow-Mag) 71.5 Mg Tablet.dr, 1 TAB PO BID, (Reported) Metformin HCl (Metformin HCl) 1,000 Mg Tablet, 1,000 MG PO BID, (Reported) Metformin HCl (Metformin HCl) 500 Mg Tablet, 500 MG PO DAILY, (Reported) AT 1200 Omeprazole (Omeprazole) 40 Mg Capsule.dr, 40 MG PO QHS, (Reported) Pioglitazone HCl (Pioglitazone HCl) 30 Mg Tablet, 30 MG PO DAILY, (Reported) Ramipril (Ramipril) 2.5 Mg Capsule, 2.5 MG PO DAILY, (Reported) Simvastatin (Zocor) 80 Mg Tablet, 80 MG PO QHS, (Reported) Tamsulosin Hcl (Tamsulosin HCl) 0.4 Mg Capsule, 0.8 MG PO DAILY, (Reported) Scheduled PRN Acetaminophen (Acetaminophen) 500 Mg Tablet, 500 MG PO Q6H PRN for PAIN, (Reported) Albuterol Sulfate (Ventolin Hfa) 18 Gm Hfa.aer.ad, 2 PUFF INH Q4H PRN for SOB/WHEEZING, (Reported) Fluticasone Propionate (Fluticasone Propionate) 16 Gm [place].susp, 2 SPRAYS NARES DAILY PRN for CONGESTION, (Reported) Allergies Coded Allergies: Penicillins (Verified Allergy, Unknown, SEVERE RASH, 07/17/18) ampicillin (Verified Allergy, Unknown, hives, 02/15/20) EVELIA HOYOS DO Sep 17, 2020 13:47
--- NOTE | 2020-09-21 10:25 | RO ---
OPERATIVE NOTE DATE OF OPERATION: 09/16/2020 PREOPERATIVE DIAGNOSIS: Acute cholecystitis. POSTOPERATIVE DIAGNOSIS: Acute cholecystitis. PROCEDURE: Laparoscopic cholecystectomy. SURGEON: Dae Boateng Jr, MD AUTOPSY ASSISTANT: ANESTHESIA: General endotracheal anesthesia. EBL: Minimal. FLUIDS: Crystalloid. DESCRIPTION OF PROCEDURE: The patient was taken to the operating room, was given general anesthesia. After adequate anesthesia and preoperative antibiotics were given, the patient was prepped and draped in usual sterile fashion. A supraumbilical incision was made with skin knife. Blunt dissection was carried down to fascia. Fascia was entered with Veress needle and insufflated to 15 mm of pressure. Dilating 10 mm trocar was placed and under direct visualization epigastric and two lateral trocars were placed. The gallbladder was seen, it was quite distended and edematous and inflamed and thus an aspiration needle was used to remove 60 mL of bile. The gallbladder was then grasped, retracted superiorly and the neck of the gallbladder was cleared of peritoneum using Hook cautery both laterally and then anteriorly. Good deal of dissection was able to be performed with some blunt dissection alone but in any case the anterior surface was cleared of peritoneum with Hook cautery. The cystic artery was well visualized going up onto the gallbladder itself and followed up onto the gallbladder. I decided to clip this proximally, distally and transect it. I then could get a better window behind the neck of the gallbladder given the significant edema and inflammation appreciated. Eventually I was able to get circumferentially around this and followed this distally where the neck of the gallbladder tapered quite nicely into the cystic duct. This was clipped proximally and distally and transected. The gallbladder then was removed from the gallbladder bed using electrocautery, placed in an Endo Catch bag and brought out through the umbilicus. Right upper quadrant was copiously irrigated until clear. All trocars were removed under direct visualization. #0 Vicryl was used to close the fascia at the umbilicus and all incisions were closed with 4-0 Vicryl. Steri-Strips and dry, sterile dressing were applied. The patient was awakened, extubated and brought to recovery room awake, alert, and hemodynamically stable. Sponge and needle counts correct x2.
== END 2020-09-17 11:40 | disposition home or self-care (01) | DRG 854 ==
LOC: M ED 23:57 → M ED INP 09-14 12:23 → M MS5PR 09-14 17:50
PROVIDERS: ADMIT Internal Medicine; ATTEND Internal Medicine
PROC: 0FT44ZZ Resection of Gallbladder, Percutaneous Endoscopic Approach (ICD-10-PCS; principal; 2020-09-16 16:00)
DX: A41.9 Sepsis, unspecified organism (principal); K81.0 Acute cholecystitis; E11.9 Type 2 diabetes mellitus without complications; E78.5 Hyperlipidemia, unspecified; Z79.82 Long term (current) use of aspirin; Z79.899 Other long term (current) drug therapy; Z88.0 Allergy status to penicillin

== ENCOUNTER → 2020-09-24 | Outpatient (CLI) | payer MEDICARE ==
[~2020-09-24] MED LIST changes: +ASPI81TA26 PO; +TRUL0.5I SC; +VENTAER INH
--- NOTE | 2020-09-24 12:26 | REP ---
INDICATION: COUGH. COMPARISON: None. TECHNIQUE: PA and lateral views FINDINGS: The cardiomediastinal silhouette is unchanged. There is persistent elevation of the diaphragmatic surface of the right lung status quo. No acute patchy parenchymal opacities or pleural effusions have developed. There is no change in the osseous structures. IMPRESSION: There is no acute cardiopulmonary disease. No significant change from 05/27/2020 <Electronically signed by Arley Irizarry > 09/24/20 1222
== END ==
LOC: M WUC 12:00
PROVIDERS: ATTEND Family Medicine
DX: R05 Cough (principal); D72.829 Elevated white blood cell count, unspecified

== ENCOUNTER → 2021-03-25 | Outpatient (REF) | payer MEDICARE | LOC: M LAB REF 11:14 | PROVIDERS: ATTEND Family Medicine | DX: E11.3293 Type 2 diabetes mellitus with mild nonproliferative diabetic retinopathy without macular edema, bilateral (principal) ==

== ENCOUNTER → 2021-07-16 | Outpatient (CLI) | payer MEDICARE ==
[~2021-07-16] MED LIST changes: -ACET1TAB16 PO; +ACET300T48 PO; +DICL1GEL3; +GABA-282
== END ==
LOC: M LABSMTC 10:40
PROVIDERS: ATTEND Anesthesiology
DX: Z01.818 Encounter for other preprocedural examination (principal); Z11.52 Encounter for screening for COVID-19

== ENCOUNTER 2021-07-21 06:31 | Day surgery (SDC) | payer MEDICARE ==
[~2021-07-21] VITALS: Ht 185.4 cm; Wt 119.0 kg
[~2021-07-21 06:31] MED LIST changes: +NS 1,000 ML IV ONE
[2021-07-21] MEDS ORDERED: propofoL 200 MG/20 ML VIAL As Ordered ONE (07:40)
[2021-07-21] MEDS ORDERED: LIDOCAINE 2% 100MG/5ML SDV (FOR ANES.) As Ordered ONE (07:40)
[2021-07-21 08:17] VITALS: BP 141/89
== END 2021-07-21 08:19 | disposition home or self-care (01) ==
LOC: M OPP 06:31
PROVIDERS: ATTEND Surgery
DX: Z12.11 Encounter for screening for malignant neoplasm of colon (principal); Z86.010 Personal history of colon polyps; K63.5 Polyp of colon; K57.30 Diverticulosis of large intestine without perforation or abscess without bleeding; Z87.19 Personal history of other diseases of the digestive system; Z79.02 Long term (current) use of antithrombotics/antiplatelets; Z79.82 Long term (current) use of aspirin; Z79.84 Long term (current) use of oral hypoglycemic drugs; Z79.899 Other long term (current) drug therapy; Z79.51 Long term (current) use of inhaled steroids; Z88.0 Allergy status to penicillin

== ENCOUNTER → 2021-11-29 | Outpatient (REF) | payer MEDICARE ==
[~2021-11-29] MED LIST changes: -NS 1,000 ML IV ONE
== END ==
LOC: M LAB REF 10:47
PROVIDERS: ATTEND Family Medicine
DX: I49.01 Ventricular fibrillation (principal)

== ENCOUNTER → 2023-11-30 | Outpatient (REF) | payer MEDICARE ==
[~2023-11-30] MED LIST changes: +DICL100G10; +DICL100G10 TOP; -DICL1GEL3; -DICL1GEL3 TOP; +GABA-1172; -GABA-282; -RAMI1CAP22 PO; +RAMI2.5C42 PO
[2023-12-04 17:24] LABS: PERCENT SATURATION 6.5 % (19.7-50.0)
[2023-12-04 17:26] LABS: FERRITIN 5.7 NG/ML (10.5-307.3); FOLATE 14.5 NG/ML (>5.4)
== END ==
LOC: M LAB REF 16:38
PROVIDERS: ATTEND Family Medicine
DX: D64.9 Anemia, unspecified (principal)

== ENCOUNTER → 2024-01-17 | Outpatient (REF) | payer MEDICARE | LOC: M LAB REF 13:09 | PROVIDERS: ATTEND Family Medicine | DX: D72.829 Elevated white blood cell count, unspecified (principal); D64.9 Anemia, unspecified ==

== ENCOUNTER → 2024-05-27 | Outpatient (CLI) | payer MEDICARE | LOC: M CARPUL 11:01 | PROVIDERS: ATTEND Physician Assistant | DX: I27.20 Pulmonary hypertension, unspecified (principal); I35.8 Other nonrheumatic aortic valve disorders ==

== ENCOUNTER → 2024-12-10 | Outpatient (REF) | payer MEDICARE ==
[~2024-12-10] MED LIST changes: +SLOW1TAB3 PO; -SLOWTAB2 PO
== END ==
LOC: M LAB REF 12:13
PROVIDERS: ATTEND Family Medicine
DX: D72.829 Elevated white blood cell count, unspecified (principal); D64.9 Anemia, unspecified